=== PATIENT | female | born 1950 | race Caucasian/White ===

== ENCOUNTER → 2016-04-02 | Outpatient (CLI) | payer MEDICARE, OTHER ==
[2014-08-01 11:55] VITALS: BP 148/73
[~2016-04-02] MED LIST: AMLO5TAB4 PO; ASPI81TA2 PO; CARV3.12 PO; CARV6.252 PO; CHOL100013 PO; CIPR500T94 PO; FURO40TA4 PO; GLIM1TAB2 PO; HYDR-2666 PO; HYDR12.58 PO; HYDR1TAB12 PO; LEVO125T5 PO; LOSA100T6 PO; METF500T25 PO; MULT-18 PO; OMEG1CAP16 PO; SACU1TAB PO; VALS1TAB6 PO; [UNRECOGNIZED DRUG - OTHER]
[2016-04-02 09:57] LABS: BASO # 0.1 x10^3/uL (0.0-0.2); BASO % 2 % (0-3); EOS % 5 % (0-3); HEMATOCRIT 39.8 % (36.0-47.0); HEMOGLOBIN 13.3 g/dL (12.0-15.5); LYMPH # 1.9 x10^3/uL (1.0-4.8); LYMPH % 27 % (24-48); MEAN CORPUSCULAR HEMOGLOBIN 27 pg (25-35); MEAN CORPUSCULAR HGB CONC 33 g/dL (31-37); MEAN CORPUSCULAR VOLUME 82 fL (79-100); MONO % 8 % (0-9); NEUT % 59 % (31-73); PLATELET COUNT 223 x10^3/uL (140-400); RED BLOOD COUNT 4.87 x10^6/uL (3.50-5.40); RED CELL DISTRIBUTION WIDTH 17.1 % (11.5-14.5); WHITE BLOOD COUNT 7.1 x10^3/uL (4.0-11.0)
[2016-04-02 10:20] LABS: CALCIUM 9.8 mg/dL (8.5-10.1); CREATININE 1.4 mg/dL (0.6-1.0); GFR 37.6; POTASSIUM 4.7 mmol/L (3.5-5.1)
== END | disposition home or self-care (01) ==
LOC: LAB 09:25
PROVIDERS: ATTEND Internal Medicine Cardiovascular Disease
DX: I42.9 Cardiomyopathy, unspecified (principal); Z96.653 Presence of artificial knee joint, bilateral
CPT/HCPCS: 36415; 80048; 83735; 85027; 87641

== ENCOUNTER → 2016-04-27 | Outpatient (CLI) | payer MEDICARE, OTHER ==
[2014-08-01 11:55] VITALS: BP 148/73
[~2016-04-27] MED LIST changes: -VALS1TAB6 PO; +VALS1TAB8 PO
[2016-04-27 13:28] LABS: ALBUMIN 3.6 g/dL (3.4-5.0); CALCIUM 9.5 mg/dL (8.5-10.1); CREATININE 1.4 mg/dL (0.6-1.0); GFR 37.6; POTASSIUM 4.7 mmol/L (3.5-5.1)
[2016-04-27 13:30] LABS: BASO # 0.2 x10^3/uL (0.0-0.2); BASO % 3 % (0-3); EOS % 4 % (0-3); HEMATOCRIT 36.9 % (36.0-47.0); HEMOGLOBIN 12.1 g/dL (12.0-15.5); LYMPH # 2.2 x10^3/uL (1.0-4.8); LYMPH % 31 % (24-48); MEAN CORPUSCULAR HEMOGLOBIN 27 pg (25-35); MEAN CORPUSCULAR HGB CONC 33 g/dL (31-37); MEAN CORPUSCULAR VOLUME 82 fL (79-100); MONO % 8 % (0-9); NEUT % 54 % (31-73); PLATELET COUNT 235 x10^3/uL (140-400); RED BLOOD COUNT 4.52 x10^6/uL (3.50-5.40); RED CELL DISTRIBUTION WIDTH 16.1 % (11.5-14.5); WHITE BLOOD COUNT 7.3 x10^3/uL (4.0-11.0)
[2016-04-28 11:23] LABS: PTH INTACT 54 pg/mL (15-65)
== END | disposition home or self-care (01) ==
LOC: LAB 12:50
PROVIDERS: ATTEND Internal Medicine Nephrology
DX: N18.3 Chronic kidney disease, stage 3 (moderate) (principal)
CPT/HCPCS: 36415; 80069; 83970; 85027

== ENCOUNTER → 2016-05-07 | Outpatient (CLI) | payer MEDICARE, OTHER ==
[2014-08-01 11:55] VITALS: BP 148/73
[2016-05-07 12:36] LABS: BASO # 0.1 x10^3/uL (0.0-0.2); BASO % 2 % (0-3); EOS % 1 % (0-3); HEMATOCRIT 37.2 % (36.0-47.0); HEMOGLOBIN 12.2 g/dL (12.0-15.5); LYMPH # 1.3 x10^3/uL (1.0-4.8); LYMPH % 25 % (24-48); MEAN CORPUSCULAR HEMOGLOBIN 27 pg (25-35); MEAN CORPUSCULAR HGB CONC 33 g/dL (31-37); MEAN CORPUSCULAR VOLUME 81 fL (79-100); MONO % 15 % (0-9); NEUT % 58 % (31-73); PLATELET COUNT 191 x10^3/uL (140-400); RED BLOOD COUNT 4.58 x10^6/uL (3.50-5.40); RED CELL DISTRIBUTION WIDTH 16.6 % (11.5-14.5); WHITE BLOOD COUNT 5.3 x10^3/uL (4.0-11.0)
--- NOTE | 2016-05-07 13:07 | RAD ---
EXAM: Chest 2 views. HISTORY: Fever. COMPARISON: 08/28/2013. FINDINGS: Frontal and lateral views of the chest are obtained. A left-sided pacemaker/defibrillator has its leads in the right atrium, right ventricle and a left cardiac vein. There are no confluent infiltrates. There is no pneumothorax or pleural effusion. The heart is mildly enlarged. IMPRESSION: 1. Mild cardiomegaly.
== END | disposition home or self-care (01) ==
LOC: RAD 12:11
PROVIDERS: ATTEND Internal Medicine Cardiovascular Disease
DX: I51.7 Cardiomegaly (principal); Z95.0 Presence of cardiac pacemaker
CPT/HCPCS: 36415; 71020; 85027

== ENCOUNTER → 2016-05-28 | Outpatient (CLI) | payer MEDICARE, OTHER ==
[2014-08-01 11:55] VITALS: BP 148/73
[2016-05-28 11:32] LABS: CREATININE 1.6 mg/dL (0.6-1.0); GFR 32.2
== END | disposition home or self-care (01) ==
LOC: LAB 10:49
PROVIDERS: ATTEND Internal Medicine Nephrology
DX: I10 Essential (primary) hypertension (principal); E11.21 Type 2 diabetes mellitus with diabetic nephropathy; N18.3 Chronic kidney disease, stage 3 (moderate); Z68.37 Body mass index [BMI] 37.0-37.9, adult
CPT/HCPCS: 36415; 80048

== ENCOUNTER → 2016-06-11 | Outpatient (CLI) | payer MEDICARE, OTHER ==
[2014-08-01 11:55] VITALS: BP 148/73
--- NOTE | 2016-06-11 11:20 | KCIC ---
Ultrasound renal Indication: Hematuria. The right kidney measures 9.2 x 5.0 x 4.9 centimeters and the left kidney measures 9.0 x 5.4 x 4.3 centimeters. Cortical thickness and echogenicity is normal. There is a cyst along the lower pole of the left kidney measuring 4.0 x 3.4 centimeters. No calculi are detected. There is no hydronephrosis. The bladder is decompressed. Impression: Right renal cyst. No other significant abnormality is detected. Electronically signed by: Ankush Smith MD (Jun 11, 2016 11:19:09)
== END | disposition home or self-care (01) ==
LOC: KCIC US 07:50
PROVIDERS: ATTEND Urology
DX: R31.9 Hematuria, unspecified (principal)
CPT/HCPCS: 76770

== ENCOUNTER → 2016-06-11 | Outpatient (CLI) | payer MEDICARE, OTHER ==
[2014-08-01 11:55] VITALS: BP 148/73
--- NOTE | 2016-06-11 17:20 | KCIC ---
Bilateral digital screening mammograms with CAD: HISTORY Routine screening. COMPARISON Comparison is made to previous examinations dated 06/06/2015 and 05/16/2014. FINDINGS Breast density category A. The skin and nipples show no abnormalities. No abnormal lymph nodes are seen in the axilla. The breast parenchyma is predominately fatty. There continues to be a small circumscribed nodule at the 6 o'clock B position of the left breast which is unchanged. There are no new dominant masses, suspicious calcifications or architectural distortions. Benign appearing calcifications are present. IMPRESSION No evidence of malignancy. Recommend routine annual mammographic screening. This study was interpreted with the benefit of Computerized Aided Detection (CAD). Mammography is not 100% sensitive in detecting breast cancer. Therefore, a self breast exam and a clinical breast exam are very important. A negative mammogram does not negate a clinically suspicious finding and should not result in a delay in biopsying a clinically suspicious abnormality. BI-RADS category 2. Benign. This patient's information has been entered into a reminder system for the patient to be notified with the results of this examination and a target date for her next mammograms. Electronically signed by: Stephanie Heath MD (Jun 11, 2016 17:18:44)
== END | disposition home or self-care (01) ==
LOC: KCIC MAMMO 07:53
PROVIDERS: ATTEND Family Medicine
DX: Z12.31 Encounter for screening mammogram for malignant neoplasm of breast (principal)
CPT/HCPCS: G0202; 77067

== ENCOUNTER → 2016-06-16 | Outpatient (CLI) | payer MEDICARE, OTHER ==
[2014-08-01 11:55] VITALS: BP 148/73
[~2016-06-16] MED LIST changes: +IOHEXOL 180 MG/ML 10 ML VIAL. ONE; +methylPREDNISolone ACETATE 40 MG/ML VIAL. ONE; +methylPREDNISolone ACETATE 80 MG/ML VIAL. ONE
--- NOTE | 2016-06-17 08:14 | PAIN ---
DATE OF SERVICE: 06/16/2016 PROGRESS NOTE FOR PAIN CLINIC DIAGNOSIS: Lumbar radiculopathy with lumbar degenerative disk disease. HISTORY OF PRESENT ILLNESS: The patient is a 65-year-old female who returns for followup status post lumbar epidural steroid injection x 2, last seen 03/03/2016. The patient did very well with the last injection, reports about 90% improvement for several weeks following the injection. Since that time, she has had a pacemaker with internal defibrillator implanted on March of this year, has been doing some physical therapy because of some shoulder pain after the implant and also doing cardiac rehab, which has increased her activity level and caused her back to start aching again with some pain radiating to the left lower extremity as it was previously, mostly in the lateral and anterior aspect of the left thigh into the medial lower leg, but mostly in the back itself. The patient reports it is throbbing, hard to walk, difficult, has been awakening her from sleep a few times a night, is anywhere from a 4-6 on a scale of 10 currently, 4 with sitting. The patient reports no loss of motor function. No new bowel or bladder incontinence or other complaints, but still significant pain. PHYSICAL EXAMINATION: VITAL SIGNS: The patient's blood pressure is 144/85, pulse 73, respirations 18, temperature is 98.0 degrees Fahrenheit, height is 5 feet 5 inches, weight is 224 pounds. GENERAL: The patient is awake, alert, oriented, appropriate, has a very pleasant demeanor. HEENT: Shows normocephalic, atraumatic. Extraocular movements are intact and symmetrical. Oral cavity, mucous membranes are moist and pink. Dentition is intact. NECK: Shows anterior throat supple without palpable lymphadenopathy noted. Swallow reflex is symmetrical. CHEST: Shows normal on inspection. Breath sounds clear to auscultation bilaterally. HEART: Shows S1 and S2 clear. ABDOMEN: Soft, nontender, nondistended. No palpable organomegaly is noted. No rebound or guarding demonstrated. BACK: Shows spine grossly in the midline. Slight exaggeration of thoracic kyphosis with mild flattening of lumbar lordotic curvature and lumbar paraspinous muscle shows symmetrical on inspection with moderate tenderness with palpation mainly in the lower lumbar distribution, slightly more on the left than the right, but appears symmetrical and good rotational motion both laterally as well as extension and flexion without difficulty. EXTREMITIES: Lower extremities show deep tendon reflexes 2+ in the patellar and 1+ tendo calcaneus tendons, are equal. Motor exam is strong with 5/5 dorsiflexion, extension, quadriceps and hamstring flexion. PLAN: Options were discussed with the patient and the patient's old chart was reviewed as was her current medication regimen and updated. Current review of systems updated today as well. We will proceed with a lumbar epidural steroid injection today, the third in the series with fluoroscopic guidance. Risks were again discussed including, but not limited to bleeding, infection, possibility of epidural hematoma, subsequent neurological compromise, dural puncture, headaches, spinal cord and/or nerve damage, side effects of steroid medication and poor results regarding pain control. The patient understands and wishes to proceed. The patient will return to the clinic in approximately 2 weeks for followup, was counseled on return appointment, activity level and side effects to be aware of. DIAGNOSIS: Lumbar radiculopathy with lumbar degenerative disk disease. PROCEDURE: Lumbar epidural injection in a translaminar approach at the L4-L5 level using a C-arm fluoroscopic guidance under sterile prep and drape using local anesthetic. MEDICATIONS INJECTED: 120 mg Depo-Medrol plus 10 mL of preservative-free normal saline and 2 mL of Isovue for contrast. CONDITION AT DISCHARGE: Stable. The patient tolerated the procedure well, had no complications. LUIS PRINCE MD DR: RYAN/tae JOB#: [id number] / [id number]
== END | disposition home or self-care (01) ==
LOC: PNCL 09:31
PROVIDERS: ATTEND Anesthesiology
DX: M51.16 Intervertebral disc disorders with radiculopathy, lumbar region (principal); I10 Essential (primary) hypertension; M19.90 Unspecified osteoarthritis, unspecified site; E11.9 Type 2 diabetes mellitus without complications; E03.9 Hypothyroidism, unspecified; Z98.51 Tubal ligation status; Z87.442 Personal history of urinary calculi; Z96.653 Presence of artificial knee joint, bilateral
CPT/HCPCS: 62323; J1030; J1040

== ENCOUNTER → 2016-06-24 | Outpatient (CLI) | payer MEDICARE, OTHER ==
[2014-08-01 11:55] VITALS: BP 148/73
[~2016-06-24] MED LIST changes: -IOHEXOL 180 MG/ML 10 ML VIAL. ONE; -methylPREDNISolone ACETATE 40 MG/ML VIAL. ONE; -methylPREDNISolone ACETATE 80 MG/ML VIAL. ONE
[2016-06-24 13:30] LABS: CALCIUM 9.3 mg/dL (8.5-10.1); CREATININE 1.3 mg/dL (0.6-1.0); POTASSIUM 4.6 mmol/L (3.5-5.1)
== END | disposition home or self-care (01) ==
LOC: LAB 12:14
PROVIDERS: ATTEND Internal Medicine Nephrology
DX: I12.9 Hypertensive chronic kidney disease with stage 1 through stage 4 chronic kidney disease, or unspecified chronic kidney disease (principal); N18.3 Chronic kidney disease, stage 3 (moderate); E11.21 Type 2 diabetes mellitus with diabetic nephropathy; Z68.37 Body mass index [BMI] 37.0-37.9, adult
CPT/HCPCS: 36415; 80048

== ENCOUNTER → 2016-07-23 | Outpatient (CLI) | payer MEDICARE, OTHER ==
[2014-08-01 11:55] VITALS: BP 148/73
[2016-07-23 14:33] LABS: CALCIUM 9.6 mg/dL (8.5-10.1); CREATININE 1.5 mg/dL (0.6-1.0); GFR 34.7; POTASSIUM 4.7 mmol/L (3.5-5.1)
== END | disposition home or self-care (01) ==
LOC: LAB 13:46
PROVIDERS: ATTEND Internal Medicine Nephrology
DX: I12.9 Hypertensive chronic kidney disease with stage 1 through stage 4 chronic kidney disease, or unspecified chronic kidney disease (principal); N18.3 Chronic kidney disease, stage 3 (moderate); E11.21 Type 2 diabetes mellitus with diabetic nephropathy; Z68.37 Body mass index [BMI] 37.0-37.9, adult
CPT/HCPCS: 36415; 80048

== ENCOUNTER → 2016-08-19 | Outpatient (CLI) | payer MEDICARE, OTHER ==
[2014-08-01 11:55] VITALS: BP 148/73
[~2016-08-19] MED LIST changes: +IOHEXOL 180 MG/ML 10 ML VIAL. ONE; +methylPREDNISolone ACETATE 40 MG/ML VIAL. ONE; +methylPREDNISolone ACETATE 80 MG/ML VIAL. ONE
--- NOTE | 2016-08-20 00:17 | PAIN ---
DATE OF SERVICE: 08/19/2016 DIAGNOSES: Lumbar radiculopathy with lumbar degenerative disk disease. HISTORY OF PRESENT ILLNESS: The patient is a 65-year-old female who returns for followup status post lumbar epidural steroid injections, last seen 06/16/2016. The patient did very well with about 80% improvement after the last injection. The patient reports pain has returned now in the low back and more on the right side than the left. ____ she has had some pain in the left leg, is more noticeable in the right leg now without any specific injury or accident or any other new changes. The patient reports this as 10 on a scale of 10, it is worse and a 5 on a scale of 10 at its least, is currently a 5 today. The patient reports worse with standing and walking, but does not awaken her from sleep, and about every 5 hours or so, she has to reposition, take pain medicine, get out of the bed and change positions, otherwise doing well. No new motor or sensory deficits, reports the pain is shooting, sharp, can be severe with some radiating pain again more on the right side posterior lateral and at the lateral anterior thigh to the lower leg, but again present on the left, but more noticeable on the right. PHYSICAL EXAMINATION: VITAL SIGNS: The patient's blood pressure 136/81, pulse 84, respirations are 18, temperature is 98.1 degrees Fahrenheit. Height is 5 feet 5 inches, weighs 224 pounds. GENERAL: The patient is awake, alert, oriented, appropriate, very pleasant demeanor. HEENT: Head shows normocephalic, atraumatic. Extraocular movements are intact, symmetrical. Oral cavity, mucous membranes are moist and pink. Dentition is intact. NECK: Shows anterior throat supple. CHEST: Shows normal on inspection. Breath sounds are clear to auscultation bilaterally. HEART: Shows S1 and S2 clear. ABDOMEN: Soft, nontender, nondistended. No palpable organomegaly. No rebound or guarding demonstrated. BACK: Shows spine grossly in the midline. Normal appearing thoracic kyphosis and lumbar lordotic curvature. The patient's lumbar paraspinous muscle shows some moderate tenderness with palpation, but is symmetrical. No atrophy, hypertrophy, no radiation of pain, no trigger points. The patient shows good rotation and motion of the lumbar spine, both laterally as well as extension and flexion. EXTREMITIES: Lower extremities showed deep tendon reflexes at 2+ in the patellar, 1+ tendo-calcaneus tendons are equal. Motor exam is strong with 5/5 dorsiflexion, extension and symmetrical. Options were discussed with the patient and the patient's old chart was reviewed as her current medication regimen updated. Current review of systems updated today as well. We will proceed with a lumbar epidural steroid injection, the first in the series with fluoroscopic guidance. Risks were again discussed including, but not limited to bleeding, infection, possibility of epidural hematoma, subsequent neurologic compromise, dural puncture, headaches, spinal cord and/or nerve damage, side effects of steroid medication and poor results regarding pain control. The patient understands and wishes to proceed. The patient will return to clinic in approximately 2 weeks for followup. She was counseled as to return appointment, activity level and side effects to be aware of. DIAGNOSES: Lumbar radiculopathy with lumbar degenerative disk disease. PROCEDURE: Lumbar epidural steroid injection in translaminar approach at the L4-L5 level using C-arm fluoroscopic guidance. After sterile prep and drape using local anesthetic. MEDICATION INJECTED: 120 mg Depo-Medrol plus 10 mL of preservative-free normal saline and 2 mL of Isovue for contrast. CONDITION AT DISCHARGE: Stable. The patient tolerated procedure well. Had no complications. LUIS PRINCE MD DR: RYAN/tae JOB#: [id number] / [id number]
== END | disposition home or self-care (01) ==
LOC: PNCL 08:56
PROVIDERS: ATTEND Anesthesiology
DX: M51.16 Intervertebral disc disorders with radiculopathy, lumbar region (principal); I10 Essential (primary) hypertension; M19.90 Unspecified osteoarthritis, unspecified site; E11.9 Type 2 diabetes mellitus without complications; E03.9 Hypothyroidism, unspecified; Z98.51 Tubal ligation status; Z96.653 Presence of artificial knee joint, bilateral
CPT/HCPCS: 62323; J1030; J1040

== ENCOUNTER → 2016-09-14 | Outpatient (CLI) | payer MEDICARE, OTHER ==
[2014-08-01 11:55] VITALS: BP 148/73
[~2016-09-14] MED LIST changes: +ASPI-630 PO; -ASPI81TA2 PO; -HYDR-2666 PO; +HYDR-2758 PO; -IOHEXOL 180 MG/ML 10 ML VIAL. ONE; -OMEG1CAP16 PO; +OMEG1CAP27 PO
== END | disposition home or self-care (01) ==
LOC: PNCL 07:35
PROVIDERS: ATTEND Anesthesiology
DX: M51.16 Intervertebral disc disorders with radiculopathy, lumbar region (principal); I10 Essential (primary) hypertension; E11.9 Type 2 diabetes mellitus without complications; E03.9 Hypothyroidism, unspecified; Z98.51 Tubal ligation status; Z87.442 Personal history of urinary calculi; Z96.653 Presence of artificial knee joint, bilateral; Z86.39 Personal history of other endocrine, nutritional and metabolic disease; Z88.6 Allergy status to analgesic agent; Z88.0 Allergy status to penicillin; Z88.8 Allergy status to other drugs, medicaments and biological substances
CPT/HCPCS: 62323; J1030; J1040

== ENCOUNTER → 2016-10-21 | Outpatient (CLI) | payer MEDICARE, OTHER ==
[2014-08-01 11:55] VITALS: BP 148/73
[~2016-10-21] MED LIST changes: +IOHEXOL 180 MG/ML 10 ML VIAL. ONE
--- NOTE | 2016-10-21 22:27 | PAIN ---
DATE OF SERVICE: 10/21/2016 PROGRESS NOTE FOR PAIN CLINIC DIAGNOSES: Lumbar radiculopathy with lumbar degenerative disk disease. HISTORY OF PRESENT ILLNESS: This is a 66-year-old female who returns for followup status post lumbar epidural steroid injection x 2, last seen on 09/14/2016. The patient did very well with approximately 80% improvement initially. It is reduced over time to about a 30% improvement overall. The patient reports the pain in the low back, bilateral lower extremities, worse on the left than the right, worse with walking, standing, easy fatigability. The patient reports the last injection took a couple of days to kick in, but then was doing very well until the last 1-2 weeks, it has been returning to a significant extent. The patient reports pain as a 9 on a scale of 10 at its worst, currently a 4 on a scale of 10, average about a 6. The patient reports it as a sharp shooting, tingling, radiating and becoming more constant and with increasing fatigue in the low back and legs as well. The patient reports no new motor or sensory deficits. No new bowel or bladder incontinence or other complaints. Reports it awakens her from sleep occasionally, but not every night. PHYSICAL EXAMINATION: VITAL SIGNS: The patient's blood pressure 132/79, pulse 77, respirations 20, temperature 97.7 degrees Fahrenheit, height is 5 feet 5 inches, weight is 232 pounds. GENERAL: The patient is awake, alert, oriented, appropriate, very pleasant demeanor. HEENT: Shows normocephalic, atraumatic. Extraocular movements are intact, symmetrical. Oral cavity, mucous membranes are moist and pink. Dentition is intact. NECK: Shows anterior throat is supple without palpable lymphadenopathy noted. Swallow reflex is symmetrical. CHEST: Shows normal on inspection. Breath sounds are clear to auscultation bilaterally. HEART: Shows S1 and S2 clear. ABDOMEN: Soft, nontender, nondistended. No palpable organomegaly is noted. No rebound or guarding demonstrated. BACK: Shows spine grossly in the midline. Lumbar paraspinous muscle shows some moderate tenderness with palpation without radiation, symmetrical and on inspection of the paraspinous musculature quite diffuse tenderness bilaterally in the lumbar paraspinous muscles, mainly in the middle and lower distribution. The patient shows good rotational motion; however, both laterally greater than 10 degrees right and left as well as extension greater than 10 degrees, forward flexion 45 degrees lumbar spine without significant discomfort. The patient reports no tenderness with palpation over the spinous processes, sacrum or sacroiliac regions. Lower extremities show deep tendon reflexes 2+ in the patella and 1+ tendo calcaneus tendons are equal. Motor exam is strong with 5/5 dorsiflexion, extension, quadriceps and hamstring flexion equal bilaterally. Options were discussed with the patient and the patient's old chart was reviewed as her current medication regimen updated. Current review of systems updated today as well. We will proceed with a third in a series of lumbar epidural steroid injection with fluoroscopic guidance. Risks were again discussed including, but not limited to bleeding, infection, possibility of epidural hematoma, subsequent neurologic compromise, dural puncture, headaches, spinal cord and/or nerve damage, side effects of steroid medication and poor results regarding pain control. The patient understands and wishes to proceed. The patient will return to clinic in approximately 2 weeks for followup, was counseled on return appointment, activity level and side effects to be aware of. Also discussed rescanning a CT scan of lumbar spine, as it has been since 2013 since her last imaging and the pain is returning significantly with more fatigability and weakness in the legs and with a history of a shallow protrusion at the L4-L5 level. We will rescan to see if this is changed or worsened to the point where may need a neurosurgical evaluation. The patient would like to proceed with the scan. We will make these arrangements. DIAGNOSIS: Lumbar radiculopathy with lumbar degenerative disk disease. PROCEDURES: Lumbar epidural steroid injection in translaminar approach at the L4-L5 level using C-arm fluoroscopic guidance under sterile prep and drape using local anesthetic. MEDICATION INJECTED: A total of 120 mg Depo-Medrol plus 10 mL of preservative-free normal saline and 2 mL Isovue for contrast. CONDITION AT DISCHARGE: Stable. The patient tolerated the procedure well, had no complications. LUIS PRINCE MD DR: RYAN/tae JOB#: [id number] / [id number]
== END | disposition home or self-care (01) ==
LOC: PNCL 07:53
PROVIDERS: ATTEND Anesthesiology
DX: M51.16 Intervertebral disc disorders with radiculopathy, lumbar region (principal); I10 Essential (primary) hypertension; M19.90 Unspecified osteoarthritis, unspecified site; E11.9 Type 2 diabetes mellitus without complications; E03.9 Hypothyroidism, unspecified; Z98.51 Tubal ligation status; Z87.442 Personal history of urinary calculi; Z87.39 Personal history of other diseases of the musculoskeletal system and connective tissue; Z96.653 Presence of artificial knee joint, bilateral; Z86.39 Personal history of other endocrine, nutritional and metabolic disease; Z88.0 Allergy status to penicillin; Z88.6 Allergy status to analgesic agent; Z91.041 Radiographic dye allergy status
CPT/HCPCS: 62323; J1030; J1040

== ENCOUNTER → 2016-10-23 | Outpatient (CLI) | payer MEDICARE, OTHER ==
[2014-08-01 11:55] VITALS: BP 148/73
[~2016-10-23] MED LIST changes: -IOHEXOL 180 MG/ML 10 ML VIAL. ONE; -methylPREDNISolone ACETATE 40 MG/ML VIAL. ONE; -methylPREDNISolone ACETATE 80 MG/ML VIAL. ONE
--- NOTE | 2016-10-23 11:23 | KCIC ---
EXAM: Lumbar spine CT without contrast. HISTORY: Radiculopathy. TECHNIQUE: Computed tomographic images of the lumbar spine were obtained without contrast. Multiplanar reformatting was performed. *One or more of the following individualized dose reduction techniques were utilized for this examination: 1. Automated exposure control. 2. Adjustment of the mA and/or kV according to patient size. 3. Use of iterative reconstruction technique. COMPARISON: None. FINDINGS: There is lumbar dextroscoliosis centered at L3. There is grade 1 anterolisthesis of L4 on L5, measuring 6 mm. There is slight retrolisthesis of L2 on L3, measuring 2 mm. There is degenerative endplate remodeling and Schmorl's node formation at all levels. This is predominantly along the left aspect of L2-L3 and right aspect of L5-S1. This corresponds with levels of sclerotic concavity. There is a rudimentary disc at S1-S2. There are foci of gas measuring 14 mm within the right dorsal epidural space at the mid inferior aspect of L3 and 2 mm and 2 mm within the superior left lateral recess at L4-L5. This is likely due to a relatively recent spinal procedure. No lytic or sclerotic osseous lesion is seen. There is degenerative vacuum phenomenon and subchondral sclerosis involving the sacroiliac joints. 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 At L1-L2, there is a disc bulge and endplate remodeling. There is minimal left facet arthropathy. There is mild bilateral foraminal stenosis. At L2-L3, there is a disc bulge and endplate osteophytosis. There is mild right and moderate left facet arthropathy. There is hypertrophy of the ligamentum flavum. There is moderate right and moderate to severe left foraminal stenosis. There is mild central canal stenosis. At L3-L4, there is a disc bulge and endplate remodeling. There is moderate right greater than left facet arthropathy. There is moderate bilateral foraminal stenosis. There is moderate central canal stenosis. At L4-L5, there is a suspected left paracentral to extraforaminal disc protrusion with slight superior foraminal extrusion superimposed on a disc bulge and endplate remodeling. There is severe facet arthropathy. There is hypertrophy of the ligamentum flavum. There is mild to moderate right and severe left foraminal stenosis with effacement of the exiting left L4 nerve root. There is severe central canal stenosis. At L5-S1, there is a right lateral predominant disc bulge and endplate osteophytosis. There is severe right and mild left facet arthropathy. There is moderate to severe right and mild left foraminal stenosis. IMPRESSION: 1. Multilevel advanced degenerative change throughout the lumbar spine, described in detail above. This results in suspected mild bilateral foraminal stenosis at L1-L2, moderate right and moderate to severe left foraminal and mild central canal stenosis at L2-L3, moderate bilateral foraminal and central canal stenosis at L3-L4, mild to moderate right and severe left foraminal and severe central canal stenosis L4-L5 and moderate to severe right and mild left foraminal stenosis L5-S1. 2. Lumbar scoliosis and grade 1 anterolisthesis of L4 on L5. 3. Gas within the right dorsal epidural space at L3 and along the superior aspect of the left lateral recess at L4-L5. This is likely due to a relatively recent spinal procedure. Correlate with surgical/procedural history. Electronically signed by: Shanita Trammell MD (10/23/2016 11:19 AM) [id number]
== END | disposition home or self-care (01) ==
LOC: KCIC CT 10:20
PROVIDERS: ATTEND Anesthesiology
DX: M54.16 Radiculopathy, lumbar region (principal); M48.06 Spinal stenosis, lumbar region; M41.86 Other forms of scoliosis, lumbar region
CPT/HCPCS: 72131

== ENCOUNTER → 2016-10-29 | Outpatient (CLI) | payer MEDICARE ==
[2014-08-01 11:55] VITALS: BP 148/73
[2016-10-29 12:02] LABS: BASO % 0 % (0-3); EOS % 3 % (0-3); HEMATOCRIT 38.8 % (36.0-47.0); HEMOGLOBIN 12.6 g/dL (12.0-15.5); LYMPH # 1.6 x10^3/uL (1.0-4.8); LYMPH % 20 % (24-48); MEAN CORPUSCULAR HEMOGLOBIN 27 pg (25-35); MEAN CORPUSCULAR HGB CONC 32 g/dL (31-37); MEAN CORPUSCULAR VOLUME 85 fL (79-100); MONO % 6 % (0-9); NEUT % 71 % (31-73); PLATELET COUNT 227 x10^3/uL (140-400); RED BLOOD COUNT 4.58 x10^6/uL (3.50-5.40); RED CELL DISTRIBUTION WIDTH 15.4 % (11.5-14.5); WHITE BLOOD COUNT 8.1 x10^3/uL (4.0-11.0)
[2016-10-29 13:10] LABS: ALBUMIN 3.6 g/dL (3.4-5.0); CALCIUM 9.4 mg/dL (8.5-10.1); CREATININE 1.4 mg/dL (0.6-1.0); GFR 37.5; PHOSPHORUS 3.2 mg/dL (2.6-4.7); POTASSIUM 4.4 mmol/L (3.5-5.1)
[2016-10-30 08:20] LABS: PTH INTACT 36 pg/mL (15-65)
== END | disposition home or self-care (01) ==
LOC: LAB 11:30
PROVIDERS: ATTEND Internal Medicine Nephrology
DX: I12.9 Hypertensive chronic kidney disease with stage 1 through stage 4 chronic kidney disease, or unspecified chronic kidney disease (principal); N18.3 Chronic kidney disease, stage 3 (moderate); E11.22 Type 2 diabetes mellitus with diabetic chronic kidney disease; E11.21 Type 2 diabetes mellitus with diabetic nephropathy; Z68.37 Body mass index [BMI] 37.0-37.9, adult
CPT/HCPCS: 36415; 80069; 83970; 85025

== ENCOUNTER → 2017-01-25 | Outpatient (CLI) | payer MEDICARE, OTHER ==
[2014-08-01 11:55] VITALS: BP 148/73
[~2017-01-25] MED LIST changes: +ALPR0.25 PO; +CARV12.52 PO; +CHOL2000 PO; +DOCU-109 PO; +HYDR-2762 PO; +IBUP-1027 PO; +LEVO100T5 PO; +METH750T2 PO; +PROM25TA10 PO
[2017-01-25 15:46] LABS: BASO # 0.2 x10^3/uL (0.0-0.2); BASO % 2 % (0-3); EOS % 3 % (0-3); HEMATOCRIT 37.1 % (36.0-47.0); HEMOGLOBIN 12.1 g/dL (12.0-15.5); LYMPH # 2.1 x10^3/uL (1.0-4.8); LYMPH % 28 % (24-48); MEAN CORPUSCULAR HEMOGLOBIN 28 pg (25-35); MEAN CORPUSCULAR HGB CONC 33 g/dL (31-37); MEAN CORPUSCULAR VOLUME 85 fL (79-100); MONO % 7 % (0-9); NEUT % 60 % (31-73); PLATELET COUNT 229 x10^3/uL (140-400); RED BLOOD COUNT 4.38 x10^6/uL (3.50-5.40); RED CELL DISTRIBUTION WIDTH 14.7 % (11.5-14.5); WHITE BLOOD COUNT 7.4 x10^3/uL (4.0-11.0)
[2017-01-25 16:11] LABS: ALBUMIN 3.6 g/dL (3.4-5.0); CALCIUM 9.5 mg/dL (8.5-10.1); CREATININE 1.4 mg/dL (0.6-1.0); GFR 37.5; POTASSIUM 4.6 mmol/L (3.5-5.1); TOTAL BILIRUBIN 0.3 mg/dL (0.2-1.0); TOTAL PROTEIN 7.3 g/dL (6.4-8.2)
== END | disposition home or self-care (01) ==
LOC: SURGPAT 15:21
PROVIDERS: ATTEND Neurological Surgery
DX: Z01.818 Encounter for other preprocedural examination (principal); M51.16 Intervertebral disc disorders with radiculopathy, lumbar region; M48.061 Spinal stenosis, lumbar region without neurogenic claudication
CPT/HCPCS: 36415; 80053; 85025; 87641

== ENCOUNTER 2017-02-01 07:03 | Observation (INO) | payer MEDICARE, OTHER ==
--- NOTE | 2017-01-29 15:09 | PREOP HP ---
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 There is also an element of right lateral thigh discomfort. Most of the pain is in the left side. It is worse with standing and walking. It began 4 years ago. She rates her pain as a 4/10. Sitting usually helps with her pain. She uses ice and Motrin as well. Lortab is associated with nausea. She underwent lumbar epidural steroid injections, which helped her, although the relief was not lasting. PAST MEDICAL HISTORY: Arthritis, artificial joint, bilateral knees, heart attack, permanent pacemaker, heart trouble/disease, kidney problems, kidney stones, swelling of limbs, thyroid disease. PAST SURGICAL HISTORY: Appendectomy and ovarian cyst in 1966, tubal ligation in 1979, bilateral total knees in 2010, cardiac cath in 2014, cystoscopy in 2014, biventricular pacemaker and ICD in 2016, bilateral cataract removal in 2016. FAMILY HISTORY: Bleeding problems, diabetes, heart problems/disease, spine problems. SOCIAL HISTORY: Retired RN. . Exercises weekly. Denies substance abuse. Denies tobacco use. Drinks alcohol 1-2 times per year. Drinks coffee, tea and soda daily. ALLERGIES: TO PENICILLIN, CODEINE, IV CONTRAST DYE AND AVANDIA. CURRENT MEDICATIONS: Prednisone, alprazolam, aspirin, carvedilol, Entresto, levothyroxine, MegaRed omega-3, metformin, vitamin D, Vision Clear, Motrin. REVIEW OF SYSTEMS: A 12-point review of systems was obtained and is noncontributory except for that mentioned above. PHYSICAL EXAMINATION: NEUROSURGERY EXAMINATION: GENERAL APPEARANCE: Alert, pleasant, in no acute distress. HEAD: Normocephalic and atraumatic. SKIN: Warm and dry. MUSCULOSKELETAL: Lumbar paraspinal muscle bulk is normal, restricted range of motion of lumbar spine, [id number] tenderness of lower lumbar spine with palpation, normal range of motion of the lower extremities bilaterally. EXTREMITIES: No clubbing, cyanosis, or edema. NEUROLOGIC: Alert and oriented x 3, normal recent and remote memory, strength 5/5 in bilateral lower extremities, sensory was intact to light touch in the lower extremities bilaterally, reflexes were trace and symmetric in bilateral lower extremities IMAGING: Reviewed. I reviewed her lumbar myelogram and post-myelogram CT scan. There is an element of stenosis at L2-L3 and L3-L4, especially in extension. There is a large extradural defect at L4-L5 which is secondary to grade 1 anterolisthesis, which is unchanged in flexion and extension. On the CT portion, this appears to be due to degenerative changes. Facet arthropathy and probable broad-based left foraminal disk herniation. ASSESSMENT: 1. Spinal stenosis, lumbar region with neurogenic claudication. 2. Intervertebral disk disorders with radiculopathy, lumbar region. PLAN: I believe the majority of her problems are related to the stenosis and disk herniation on the left side at L4-L5. I recommended lumbar microsurgery at this level. She does not really want flexion and extension views and therefore, I will not instrument her, but I explained that over time, she may develop progressive problems of spondylolisthesis which could require instrumented lumbar fusion in the future. I discussed all this with her in detail. I outlined the risk of surgery as well as discussing the postoperative course with both the patient and her daughter. They understand. They would like for me to go ahead. We will make the arrangements. COURTNEY KENNY MD DR: RAJ/tae JOB#: [id number] / [id number]
[~2017-02-01] VITALS: Ht 165.1 cm; Wt 105.2 kg
[2017-02-01] VITALS (10 sets, daily range): BP systolic 119–139; BP diastolic 53–70
[~2017-02-01 07:03] MED LIST changes: +BACITRACIN 50,000 UNIT in IV NORMAL SALINE 1000ML BAG 1,000 ML IRR ONE; +BUPIVAC MPF-EPI 0.5%-1:200000 30 ML VIAL. ONE; -DOCU-109 PO; +GELATIN SPONGE SIZE 100. ONE; -HYDR-2762 PO; +IV RINGERS,LACTATED 1000ML 1,000 ML IV SCH; +KETOROLAC 60 MG/2 ML INJ FOR OR. ONE; +LIDOCAINE 1% PF 2 ML VIAL. ID PRN; -METH750T2 PO; +ONDANSETRON PF 4 MG/2 ML VIAL. IV PRN; +PROCHLORPERAZINE 10 MG/2 ML VIAL. IV PRN; +THROMBIN TOPICAL 20,000 UNIT SPRAY.SYRN KIT TP ONE; +VANCOMYCIN 1GM IVPB FOR OMNI 250 ML IV PRN; +fentaNYL PF VIAL 100 MCG/2 ML VIAL IV PRN
[2017-02-01] MEDS ORDERED: IV NORMAL SALINE 1000ML BAG 1,000 ML IV SCH (07:15)
[2017-02-01] MEDS ORDERED: BUPIVAC MPF-EPI 0.5%-1:200000 30 ML VIAL. ONE (07:50)
[2017-02-01] MEDS ORDERED: GELATIN SPONGE SIZE 100. ONE (07:50)
[2017-02-01] MEDS ORDERED: THROMBIN TOPICAL 20,000 UNIT SPRAY.SYRN KIT TP ONE (07:50)
[2017-02-01] MEDS ORDERED: KETOROLAC 60 MG/2 ML INJ FOR OR. ONE (07:50)
[2017-02-01] MEDS ORDERED: DESFLURANE > 120 MINUTES IH ONE (08:06)
[2017-02-01] MEDS ORDERED: fentaNYL PF VIAL 100 MCG/2 ML VIAL ONE (08:06)
[2017-02-01] MEDS ORDERED: REMIFENTANIL 2 MG VIAL. IV ONE (08:07)
[2017-02-01] MEDS ORDERED: NEOSTIGMINE METHYLSULFATE 5 MG/5 ML SYRINGE. ONE (08:07)
[2017-02-01] MEDS ORDERED: ROCURONIUM 50 MG/5 ML VIAL. ONE (08:07)
[2017-02-01] MEDS ORDERED: GLYCOPYRROLATE 1 MG/5 ML VIAL. ONE (08:07)
[2017-02-01] MEDS ORDERED: LIDOCAINE 2% PF Vial for OR 5 ML VIAL. ONE (08:08)
[2017-02-01] MEDS ORDERED: ONDANSETRON PF 4 MG/2 ML VIAL. ONE (08:08)
[2017-02-01] MEDS ORDERED: DEXAMETHASONE SOD PHOS 20 MG/5 ML VIAL. ONE (08:08)
[2017-02-01] MEDS ORDERED: PROPOFOL 20 ML IV ONE (08:08)
[2017-02-01] MEDS ORDERED: PROPOFOL 50 ML IV ONE ×2 (08:08→09:31)
[2017-02-01] MEDS ORDERED: PHENYLEPHRINE 10 MG/ML VIAL. ONE ×2 (08:09)
[2017-02-01] MEDS ORDERED: 0.9 % SODIUM CHLORIDE 50 ML VIAL. IJ ONE (08:11)
[2017-02-01] MEDS ORDERED: MIDAZOLAM HCL/PF 2 MG/2 ML VIAL. ONE ×2 (08:18→08:21)
[2017-02-01] MEDS ORDERED: ETOMIDATE 20 MG/10 ML VIAL. IV ONE (08:24)
[2017-02-01] MEDS ORDERED: ONDANSETRON PF 4 MG/2 ML VIAL. IV PRN (11:30)
[2017-02-01] MEDS ORDERED: diphenhydrAMINE HCL 25 MG CAPSULE PO PRN (11:30)
[2017-02-01] MEDS ORDERED: ACETAMINOPHEN 325 MG TABLET. PO PRN (11:30)
[2017-02-01] MEDS ORDERED: ZOLPIDEM 5 MG TABLET. PO PRN (11:30)
[2017-02-01] MEDS ORDERED: CALCIUM CARBONATE 500 MG TAB.CHEW PO PRN (11:30)
[2017-02-01] MEDS ORDERED: FUROSEMIDE 40 MG TABLET. PO PRN (11:30)
[2017-02-01] MEDS ORDERED: fentaNYL PF VIAL 100 MCG/2 ML VIAL IV PRN ×2 (11:30)
[2017-02-01] MEDS ORDERED: MAGNESIUM HYDROXIDE 2,400 MG/30 ML ORAL.SUSP. PO PRN (11:30)
[2017-02-01] MEDS ORDERED: IBUPROFEN 400 MG TABLET. PO PRN (11:30)
[2017-02-01] MEDS ORDERED: ALPRAZolam 0.25 MG TABLET PO PRN (11:30)
[2017-02-01] MEDS ORDERED: MAG HYDROX/ALUMINUM HYD/SIMETH 30 ML ORAL.SUSP PO PRN (11:30)
[2017-02-01] MEDS ORDERED: diphenhydrAMINE 50 MG/ML VIAL IV PRN (11:30)
[2017-02-01] MEDS ORDERED: DEXTROSE 50% 25 GM / 50ML DISP.SYRIN. IV PRN (11:30)
[2017-02-01] MEDS ORDERED: HYDROcodone/APAP 7.5/325MG 1 TAB TABLET PO PRN (11:30)
[2017-02-01] MEDS ORDERED: 0.9 % SODIUM CHLORIDE 10 ML DISP.SYRIN. IV PRN (11:30)
[2017-02-01] MEDS ORDERED: PROMETHAZINE 12.5 MG TABLET. PO PRN (11:45)
[2017-02-01] MEDS: fentaNYL PF VIAL 100 MCG/2 ML VIAL IV PRN ×2 (11:49→12:20)
[2017-02-01] MEDS ORDERED: NEOMY/BACITR/POLYMYXIN OINT PACKET. TP ONE (11:55)
[2017-02-01] MEDS: POTASSIUM CL 20MEQ-0.45% NACL 1,000 ML IV SCH ×2 (13:43→19:30)
[2017-02-01] MEDS: METHOCARBAMOL 750 MG TABLET PO SCH ×2 (13:51→21:21)
--- NOTE | 2017-02-01 18:16 | OP ---
DATE OF SURGERY: 02/01/2017 PREOPERATIVE DIAGNOSES: 1. Herniated lumbar disc, L4-L5, left. 2. Spondylolisthesis grade 1, L4-L5. 3. Lumbar spinal stenosis, L4-L5. POSTOPERATIVE DIAGNOSES: 1. Herniated lumbar disc, L4-L5, left. 2. Spondylolisthesis grade 1, L4-L5. 3. Lumbar spinal stenosis, L4-L5. OPERATION PERFORMED: Hemilaminotomy and microdiscectomy, L4-L5, left. The operation was done with EMG monitoring, fluoroscopy, microscopic dissection. SURGEON: Milan Kenny M.D. SENIOR MANUFACTURING ENGINEER: Migue Varner MD, assisted with surgery, assisted with the exposure, the microdiscectomy as well as closure. 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 On imaging studies, she did have a grade 1 spondylolisthesis and element of stenosis at L4-L5. There was also significant disc bulging on the left side and I recommended lumbar microsurgery. I performed flexion and extension films, there was no motion and so, I elected to focus on the left side and performed a decompression and discectomy and I tried to avoid of having to move down the path of an instrumented lumbar fusion. I discussed all this with her. She understood. She wished to go ahead. DESCRIPTION OF PROCEDURE: Following general endotracheal anesthesia, the patient positioned prone on the Michael frame. Her lumbar region was prepped and draped in the standard fashion. STEPHANIE hose and AV impulse boots were applied for DVT prophylaxis. A microscope was draped. Fluoroscopy was draped and brought into field. Monitoring was established. Vancomycin 1 gram was given. Using fluoroscopic guidance, a midline incision was made directly over the L4-L5 interspace. I dissected down the skin and subcutaneous tissue, reflected the paraspinal muscles and placed a [place] micro disc retractor, brought in the microscope and remainder of surgery done with a microscope using microscopic technique. I burred down a generous hemilaminotomy with a high speed air drill. Medially, the ligament was scarred to the dura. There was some difficulty in freeing this up, but I was able to free this up and peel ligament away performing an excellent decompression. I gently retracted the root medially. There was a large amount of bulging disc material and I incised the ligament and annulus and I teased back and milked back a number of disc fragments followed by entering into this region and performing a discectomy with pituitary rongeurs. As I worked, the entire region became very well decompressed. I was very pleased with the discectomy. I irrigated copiously with antibiotic solution. The roots were quite free throughout their course. I had excellent hemostasis. I did use small amounts of bone wax or the bipolar cautery where necessary. At this point, then I removed the retractor, irrigated copiously, obtained hemostasis in the muscle and I closed the wound in layers with absorbable sutures. The skin was closed with 4-0 subcuticular stitch. The operation went very well and the patient was taken to recovery room in excellent condition with normal strength in lower extremities. I was quite pleased with the surgery. MILAN KENNY MD DR: RAJ/tae JOB#: [id number] / [id number] [place]
[2017-02-01] MEDS: metFORMIN XR 500 MG TAB.ER.24H PO SCH (18:46)
[2017-02-01] MEDS: CARVEDILOL 12.5 MG TABLET. PO SCH (18:49)
[2017-02-01] MEDS: DOCUSATE SODIUM 100 MG CAPSULE. PO SCH (21:19)
[2017-02-01] MEDS: SACUBITRIL/VALSARTAN 24/26MG TABLET. PO SCH (21:21)
[2017-02-01] MEDS: HYDROcodone/APAP 7.5/325MG 1 TAB TABLET PO PRN (23:26)
[2017-02-02 03:00] VITALS: BP 119/55
[2017-02-02] MEDS: HYDROcodone/APAP 7.5/325MG 1 TAB TABLET PO PRN (06:21)
[2017-02-02 06:47] VITALS: BP 115/59
[2017-02-02] MEDS ORDERED: LEVOTHYROXINE 100 MCG TABLET PO SCH (07:30)
[2017-02-02] MEDS: metFORMIN XR 500 MG TAB.ER.24H PO SCH (08:08)
[2017-02-02] MEDS: DOCUSATE SODIUM 100 MG CAPSULE. PO SCH (08:09)
[2017-02-02] MEDS: METHOCARBAMOL 750 MG TABLET PO SCH (08:10)
[2017-02-02] MEDS: CARVEDILOL 12.5 MG TABLET. PO SCH (08:13)
[2017-02-02] MEDS ORDERED: OMEGA-3 FATTY ACIDS/FISH OIL 1,000 MG CAPSULE. PO SCH (09:00)
[2017-02-02] MEDS ORDERED: CHOLECALCIFEROL (VITAMIN D3) 1,000 UNIT TABLET PO SCH (09:00)
[2017-02-02] MEDS ORDERED: ASPIRIN CHEWABLE 81 MG TABLET. PO SCH (09:00)
[2017-02-02] MEDS ORDERED: GLIMEPIRIDE 2 MG TABLET. PO SCH (09:00)
[2017-02-02] MEDS ORDERED: MULTIVITAMIN with MINERAL TABLET. PO SCH (09:00)
[2017-02-02] MEDS: SACUBITRIL/VALSARTAN 24/26MG TABLET. PO SCH (09:00)
--- NOTE | 2017-02-02 10:14 | DISCH ---
DISCHARGE INSTRUCTIONS Condition on Discharge Condition on Discharge: Stable Activity After Discharge Activity Instructions for Disc: Activity as tolerated, Avoid exertion Other activity instructions: No driving for a week Bathing Instructions: Shower-keep dressing dry Lifting Instructions after Dis: No heavy lifting, No pulling or pushing, Do not lift >10 pounds Diet after Discharge Additional Diet Restrictions: resume home diet Wound Incision Care Wound/Incision Care: Ice to area for comfort Other wound/incision instructi: may remove dressing in 48 hrs if dry then may shower- no soaking Contacting the after DC Call your doctor for: Concerns you may have Follow-Up Follow up with: Dr. Kenny's nurse in 2 weeks [phone] COURTNEY KENNY MD Feb 02, 2017 10:14
[2017-02-02] MEDS ORDERED: DOCU-109 PO (10:18)
[2017-02-02] MEDS ORDERED: HYDR-2762 PO (10:18)
[2017-02-02] MEDS ORDERED: METH750T2 PO (10:18)
[2017-02-02 11:03] VITALS: BP 117/59
--- NOTE | 2017-02-02 14:21 | PATHOLOGY ---
PATHOLOGY REPORT * * * * * * * * FINAL DIAGNOSIS: Segments of fibrocartilaginous, adipose, and skeletal muscle tissue and bone, lumbar decompression: - Degenerative changes of fibrocartilaginous tissue. COMMENT: There is no evidence of an acute inflammatory process or malignancy. (JPM:rlm; 02/02/2017) REPORT ELECTRONICALLY SIGNED BY: Jim Fishman M.D. DATE/TIME: 02/02/2017 14:20 * * * * * * * * GROSS PATHOLOGY: Received in formalin labeled "Shelly Soliman, lumbar decompression," are multiple segments of yellow and connors-white rubbery and gritty tissue measuring 5.4 x 3.9 x 1.8 cm in aggregate dimensions, containing small fragments of possible bone. The tissue is submitted entirely in cassette A1, following a period of decalcification. (TSD; 02/01/2017) INITIAL CPT CODE(S): A; 79676, 13426 Professional services performed [place] [address] Technical services performed by [facility] at [address] [place] [address]. SPECIMEN(S) RECEIVED: A.Lumbar decompression CLINICAL HISTORY: Lumbar herniated disc PATIENT: SHELLY SOLIMAN /AGE: 609/10/1950 (Age: 66) PATIENT #: [id number] ALT CASE #: SPECIMEN COLLECTION DATE: 02/01/2017 SPECIMEN RECEIVED DATE: 02/01/2017 [facility] - [address] [place] [address] - PHONE: [phone] * * * END OF REPORT * * *
== END 2017-02-02 12:45 | disposition home or self-care (01) ==
LOC: SURG 07:03 → 4 SOUTHEST 11:50
PROVIDERS: ADMIT Neurological Surgery; ATTEND Neurological Surgery
DX: M48.062 Spinal stenosis, lumbar region with neurogenic claudication (principal); M43.10 Spondylolisthesis, site unspecified; M51.16 Intervertebral disc disorders with radiculopathy, lumbar region; I25.2 Old myocardial infarction; Z83.3 Family history of diabetes mellitus; Z87.442 Personal history of urinary calculi; Z95.0 Presence of cardiac pacemaker; Z98.51 Tubal ligation status
CPT/HCPCS: 63030; 76000; 82962; 88304; 88311; 96374; 96375; 97162; 97530; G0378; G0379; G8978; G8979; G8980; J0780; J1100; J1885; J2250; J2405; J2704; J2710; J3010; J3370; J3490; J7030; Q0169; J2001

== ENCOUNTER → 2017-04-21 | Outpatient (CLI) | payer MEDICARE, OTHER ==
[2017-04-21 12:20] LABS: ADD MAN DIFF? NO
[2017-04-21 12:26] LABS: BASO % 0 % (0-3); EOS # 0.3 x10^3/uL (0.0-0.7); EOS % 4 % (0-3); HEMATOCRIT 37.2 % (36.0-47.0); HEMOGLOBIN 12.5 g/dL (12.0-15.5); LYMPH # 2.1 x10^3/uL (1.0-4.8); LYMPH % 27 % (24-48); MEAN CORPUSCULAR HEMOGLOBIN 28 pg (25-35); MEAN CORPUSCULAR HGB CONC 34 g/dL (31-37); MEAN CORPUSCULAR VOLUME 83 fL (79-100); MONO # 0.7 x10^3/uL (0.0-1.1); MONO % 9 % (0-9); NEUT # 4.5 x10^3uL (1.8-7.7); NEUT % 59 % (31-73); PLATELET COUNT 235 x10^3/uL (140-400); RED BLOOD COUNT 4.51 x10^6/uL (3.50-5.40); RED CELL DISTRIBUTION WIDTH 15.4 % (11.5-14.5); WHITE BLOOD COUNT 7.7 x10^3/uL (4.0-11.0)
[2017-04-21 12:51] LABS: ALBUMIN 3.8 g/dL (3.4-5.0); ANION GAP 11 (6-14); BLOOD UREA NITROGEN 26 mg/dL (7-20); CALCIUM 10.2 mg/dL (8.5-10.1); CARBON DIOXIDE 28 mmol/L (21-32); CHLORIDE 103 mmol/L (98-107); CREATININE 1.5 mg/dL (0.6-1.0); GFR 34.6; GLUCOSE 130 mg/dL (70-99); PHOSPHORUS 3.2 mg/dL (2.6-4.7); POTASSIUM 4.6 mmol/L (3.5-5.1); SODIUM 142 mmol/L (136-145)
[2017-04-22 13:23] LABS: CREATININE PTH 1.48 mg/dL (0.57-1.00); PHOSPHORUS PTH 3.2 mg/dL (2.5-4.5); PTH INTACT 51 pg/mL (15-65); eGFR AFRICAN-AMER 42 (>59); eGFR NON AFRICAN-AMER 36 (>59)
== END | disposition home or self-care (01) ==
LOC: LAB 12:03
DX: I12.9 Hypertensive chronic kidney disease with stage 1 through stage 4 chronic kidney disease, or unspecified chronic kidney disease (principal); E11.22 Type 2 diabetes mellitus with diabetic chronic kidney disease; N18.3 Chronic kidney disease, stage 3 (moderate); I25.5 Ischemic cardiomyopathy; Z68.38 Body mass index [BMI] 38.0-38.9, adult
CPT/HCPCS: 36415; 80069; 83970; 85025

== ENCOUNTER → 2017-06-14 | Outpatient (CLI) | payer MEDICARE, OTHER | END | disposition home or self-care (01) | LOC: KCIC MAMMO 09:38 | DX: Z12.31 Encounter for screening mammogram for malignant neoplasm of breast (principal) | CPT/HCPCS: 77063; 77067 ==

== ENCOUNTER → 2018-05-10 | Outpatient (CLI) | payer MEDICARE, OTHER ==
[~2018-05-10] MED LIST changes: -BACITRACIN 50,000 UNIT in IV NORMAL SALINE 1000ML BAG 1,000 ML IRR ONE; -BUPIVAC MPF-EPI 0.5%-1:200000 30 ML VIAL. ONE; +CARV12.511 PO; -CARV12.52 PO; +CARV6.2511 PO; -CARV6.252 PO; +DOCU-109 PO; -GELATIN SPONGE SIZE 100. ONE; -HYDR-2758 PO; +HYDR-2761 PO; +HYDR-2765 PO; -HYDR1TAB12 PO; +HYDR1TAB13 PO; -IV RINGERS,LACTATED 1000ML 1,000 ML IV SCH; -KETOROLAC 60 MG/2 ML INJ FOR OR. ONE; -LIDOCAINE 1% PF 2 ML VIAL. ID PRN; +LOSA100T14 PO; -LOSA100T6 PO; +METH750T2 PO; -ONDANSETRON PF 4 MG/2 ML VIAL. IV PRN; -PROCHLORPERAZINE 10 MG/2 ML VIAL. IV PRN; -THROMBIN TOPICAL 20,000 UNIT SPRAY.SYRN KIT TP ONE; -VANCOMYCIN 1GM IVPB FOR OMNI 250 ML IV PRN; -fentaNYL PF VIAL 100 MCG/2 ML VIAL IV PRN
[2018-05-10 12:36] LABS: BASO % 0 % (0-3); EOS # 0.4 x10^3/uL (0.0-0.7); EOS % 5 % (0-3); HEMATOCRIT 35.3 % (36.0-47.0); HEMOGLOBIN 11.4 g/dL (12.0-15.5); LYMPH # 2.1 x10^3/uL (1.0-4.8); LYMPH % 30 % (24-48); MEAN CORPUSCULAR HEMOGLOBIN 27 pg (25-35); MEAN CORPUSCULAR HGB CONC 32 g/dL (31-37); MEAN CORPUSCULAR VOLUME 83 fL (79-100); MONO # 0.5 x10^3/uL (0.0-1.1); MONO % 8 % (0-9); NEUT # 3.9 x10^3uL (1.8-7.7); NEUT % 57 % (31-73); PLATELET COUNT 230 x10^3/uL (140-400); RED BLOOD COUNT 4.23 x10^6/uL (3.50-5.40); RED CELL DISTRIBUTION WIDTH 16.2 % (11.5-14.5); WHITE BLOOD COUNT 6.9 x10^3/uL (4.0-11.0)
[2018-05-10 12:54] LABS: CALCIUM 9.7 mg/dL (8.5-10.1); CREATININE 1.7 mg/dL (0.6-1.0); GFR 29.9; POTASSIUM 4.7 mmol/L (3.5-5.1)
== END | disposition home or self-care (01) ==
LOC: LAB 12:09
PROVIDERS: ATTEND Internal Medicine Cardiovascular Disease
DX: I10 Essential (primary) hypertension (principal); I42.8 Other cardiomyopathies
CPT/HCPCS: 36415; 80048; 84443; 85025

== ENCOUNTER → 2018-05-13 | Outpatient (CLI) | payer MEDICARE, OTHER ==
[2018-05-13 13:14] LABS: BASO # 0.1 x10^3/uL (0.0-0.2); BASO % 2 % (0-3); EOS # 0.3 x10^3/uL (0.0-0.7); EOS % 4 % (0-3); HEMATOCRIT 35.4 % (36.0-47.0); HEMOGLOBIN 11.5 g/dL (12.0-15.5); LYMPH % 30 % (24-48); MEAN CORPUSCULAR HEMOGLOBIN 27 pg (25-35); MEAN CORPUSCULAR HGB CONC 33 g/dL (31-37); MEAN CORPUSCULAR VOLUME 83 fL (79-100); MONO # 0.4 x10^3/uL (0.0-1.1); MONO % 6 % (0-9); NEUT # 3.9 x10^3uL (1.8-7.7); NEUT % 58 % (31-73); PLATELET COUNT 233 x10^3/uL (140-400); RED BLOOD COUNT 4.25 x10^6/uL (3.50-5.40); RED CELL DISTRIBUTION WIDTH 15.7 % (11.5-14.5); WHITE BLOOD COUNT 6.8 x10^3/uL (4.0-11.0)
[2018-05-13 14:55] LABS: ALBUMIN 3.6 g/dL (3.4-5.0); CALCIUM 9.3 mg/dL (8.5-10.1); CREATININE 1.8 mg/dL (0.6-1.0); PHOSPHORUS 3.4 mg/dL (2.6-4.7); POTASSIUM 4.4 mmol/L (3.5-5.1)
[2018-05-14 11:13] LABS: CALCIUM PTH 9.5 mg/dL (8.7-10.3); CREATININE PTH 1.72 mg/dL (0.57-1.00); PHOSPHORUS PTH 3.2 mg/dL (2.5-4.5); PTH INTACT 49 pg/mL (15-65)
== END | disposition home or self-care (01) ==
LOC: LAB 12:04
PROVIDERS: ATTEND Internal Medicine Nephrology
DX: I12.9 Hypertensive chronic kidney disease with stage 1 through stage 4 chronic kidney disease, or unspecified chronic kidney disease (principal); E11.22 Type 2 diabetes mellitus with diabetic chronic kidney disease; N18.3 Chronic kidney disease, stage 3 (moderate); E11.21 Type 2 diabetes mellitus with diabetic nephropathy; I42.9 Cardiomyopathy, unspecified; Z68.39 Body mass index [BMI] 39.0-39.9, adult
CPT/HCPCS: 36415; 80069; 83970; 85025

== ENCOUNTER → 2018-06-15 | Outpatient (CLI) | payer MEDICARE ==
--- NOTE | 2018-06-15 13:17 | KCIC ---
Bilateral digital screening mammograms with 3-D tomosynthesis: Reason for examination: Routine screening. Comparison is made to previous studies dated 06/14/2017 and 06/11/2016. Bilateral mammograms in CC and oblique projections were obtained with 2-D imaging and 3-D tomosynthesis imaging on a Visto Inspiration unit and reviewed on the workstation. Interpretation was made with the benefit of CAD. The skin and nipples show no abnormalities. No abnormal axillary lymph nodes are seen. The breast parenchyma is predominantly fatty. (Breast density: Category A.) There are continues to be a small circumscribed nodule in the 6:00 position posteriorly in the left breast which is stable. There are no new no dominant masses, suspicious calcifications or architectural distortion. Impression: No evidence of malignancy. Recommend routine screening. BI-RAD Category 2: Benign. "Our facility is accredited by the [employer] Mammography Program." This patient's information has been entered into a reminder system for the patient to be notified with the results of her examination and a target date for the next mammogram. Electronically signed by: Jeri Heath MD (06/15/2018 1:14 PM) [id number]
== END | disposition home or self-care (01) ==
LOC: KCIC MAMMO 08:46
PROVIDERS: ATTEND Family Medicine
DX: Z12.31 Encounter for screening mammogram for malignant neoplasm of breast (principal)
CPT/HCPCS: 77063; 77067

== ENCOUNTER → 2018-08-18 | Outpatient (CLI) | payer MEDICARE ==
[2018-08-18 13:18] LABS: ALBUMIN 3.8 g/dL (3.4-5.0); CALCIUM 10.2 mg/dL (8.5-10.1); CREATININE 1.9 mg/dL (0.6-1.0); GFR 26.3; PHOSPHORUS 3.4 mg/dL (2.6-4.7); POTASSIUM 4.2 mmol/L (3.5-5.1)
== END | disposition home or self-care (01) ==
LOC: LAB 12:44
PROVIDERS: ATTEND Internal Medicine Nephrology
DX: E11.21 Type 2 diabetes mellitus with diabetic nephropathy (principal); E11.22 Type 2 diabetes mellitus with diabetic chronic kidney disease; I12.9 Hypertensive chronic kidney disease with stage 1 through stage 4 chronic kidney disease, or unspecified chronic kidney disease; N18.4 Chronic kidney disease, stage 4 (severe); I42.9 Cardiomyopathy, unspecified; Z68.41 Body mass index [BMI] 40.0-44.9, adult
CPT/HCPCS: 36415; 80069

== ENCOUNTER → 2018-11-29 | Outpatient (CLI) | payer MEDICARE ==
--- NOTE | 2018-11-29 14:56 | RAD ---
EXAM: CT lumbar spine without IV contrast CLINICAL HISTORY:Lumbar stenosis, low back pain COMPARISON: None available. TECHNIQUE: Helical CT was performed through the lumbar spine. Axial, coronal and sagittal reformatted images were generated. PQRS compliance statement - One or more of the following individualized dose reduction techniques were utilized for this study: 1. Automated exposure control 2. Adjustment of the mA and/or kV according to patient size 3. Use of iterative reconstruction technique FINDINGS: Vertebral body heights are preserved. No evidence for acute fracture. There our 5 nonrib-bearing lumbar-type vertebral bodies. Grade 1 anterolisthesis of L4 on L5 measures 6 mm. Advanced facet degenerative changes are seen at L4-5 and L5-S1. Moderate L5-S1 disc height loss. Mild disc height loss of the other levels. Anterior endplate osteophytes are seen at multiple levels. Lumbar spine: L1-L2: Mild generalized bulge results in mild central canal stenosis and mild bilateral neural foraminal narrowing. L2-L3: Posterior disc osteophyte complex with diffuse disc bulge, facet degenerative changes and ligamentum flavum hypertrophy results in mild to moderate central canal stenosis and moderate to severe left and moderate right neural foraminal narrowing. L3-L4: Generalized disc bulge with ligamentum flavum hypertrophy and facet degenerative changes with mildly prominent epidural fat results in moderate to severe central canal stenosis with thecal sac measuring approximately 6 mm in AP dimension and moderate to severe bilateral neural foraminal narrowing. L4-L5: Grade 1 anterolisthesis of L4 on L5 bilaterally with bilateral facet degenerative changes, ligamentum flavum hypertrophy and facet degenerative changes results in moderate to severe central canal stenosis with thecal sac measuring approximately 6 mm in AP dimension with moderate bilateral neural foraminal narrowing. L5-S1: No significant central canal stenosis or neural foraminal narrowing IMPRESSION: 1. Multilevel spondylosis as above, most prominent at L3-4 and L4-5. 2. Negative acute fracture. 3. Grade 1 anterolisthesis of L4 on L5. Electronically signed by: Chuck Reed MD (11/29/2018 2:53 PM) [facility]
== END | disposition home or self-care (01) ==
LOC: CT 08:59
PROVIDERS: ATTEND Family Medicine
DX: M48.061 Spinal stenosis, lumbar region without neurogenic claudication (principal); M47.816 Spondylosis without myelopathy or radiculopathy, lumbar region; M43.16 Spondylolisthesis, lumbar region; M25.78 Osteophyte, vertebrae; M89.38 Hypertrophy of bone, other site
CPT/HCPCS: 72131

== ENCOUNTER → 2018-12-07 | Outpatient (CLI) | payer MEDICARE ==
[~2018-12-07] MED LIST changes: +CARV25TA2 PO; +IOHEXOL 180 MG/ML 10 ML VIAL. ONE; +methylPREDNISolone ACETATE 40 MG/ML VIAL. ONE; +methylPREDNISolone ACETATE 80 MG/ML VIAL. ONE
--- NOTE | 2018-12-07 08:58 | PN ---
DATE: 12/07/2018 PROGRESS NOTE FOR PAIN CLINIC DIAGNOSES: Lumbar radiculopathy with lumbar degenerative disk disease and lumbar post-laminectomy syndrome. HISTORY OF PRESENT ILLNESS: The patient is a 68-year-old female who returns for followup status post previous lumbar epidural steroid injection, last seen in 10/2016. The patient has since had lumbar decompression and laminectomy at the L4-L5 level about a year ago. The patient reports she did very well initially, but over the past few weeks, she has been increasing her activity. She was traveling to see her mother, sleeping on an uncomfortable bed with lot of traveling and lot of position changes and a lot of time on her feet, which has increased some pain in her low back that is radiating to bilateral lower extremities, mostly in the posterior gluteus, posterolateral thigh, lateral anterior thighs, worse on the right than the left, but last week was worst on the left. The patient reports it goes into the left lower leg as well in the anterior aspect of the right leg. The patient reports it is sharp, tight, radiating, becoming more constant with severe about a week ago, but getting better on its own slightly. The patient reports her pain in the last week was at 10 on a scale of 10 at its worst, 8 on average, 4 at its least and is an 8 today. The patient reports no new motor or sensory deficits, no new bowel or bladder incontinence or other complaints. It has been awakening her from sleep about every 5 hours. PHYSICAL EXAMINATION: VITAL SIGNS: The patient's blood pressure 129/91, pulse 85, respirations 16, temperature 98.7 degrees Fahrenheit, height is 5 feet 5 inches, weight is 240 pounds. GENERAL: The patient is awake, alert, oriented, appropriate, very pleasant demeanor. HEENT: Head shows normocephalic, atraumatic. Extraocular movements are intact and symmetrical. Oral cavity: Mucous membranes moist and pink. Dentition is intact. NECK: Shows anterior throat supple without palpable lymphadenopathy noted. Swallow reflex symmetrical. CHEST: Shows normal on inspection. Breath sounds clear to auscultation bilaterally. HEART: Shows S1, S2 clear. No murmurs auscultated. ABDOMEN: Obese, soft, nontender, nondistended. No palpable organomegaly is noted. No rebound or guarding demonstrated. BACK: Shows spine grossly in the midline. Normal-appearing thoracic kyphosis and slight flattening of lumbar lordotic curvature. Lumbar paraspinous muscle shows symmetrical on inspection, on palpation shows some moderate tenderness diffusely, but only diffusely without specific radiation. The patient has good rotational motion of lumbar spine both laterally as well as extension and flexion without significant difficulty or pain reported. EXTREMITIES: The patient's lower extremities show deep tendon reflexes at 2+ and patellar 1+, tendo-calcaneus tendons are equal. Motor exam is strong with 5/5 dorsiflexion, extension, quadriceps and hamstring flexion symmetrical. Peripheral pulses are 1+ posterior tibia. No peripheral edema is noted bilaterally. Options were discussed with the patient. The patient's old chart was reviewed as her current medication regimen updated. Current review of systems updated today as well and we will proceed with a lumbar epidural steroid injection today with fluoroscopic guidance. Risks were discussed including but not limited to bleeding, infection, possibility of epidural hematoma, subsequent neurologic compromise, dural punctures, headaches, spinal cord and/or nerve damage, side effects of steroid medication and poor results regarding pain control. The patient understands and wished to proceed. The patient will return to clinic in approximately 2 weeks for followup. She was counseled as to return appointment, activity level and side effects to be aware of. DIAGNOSES: Lumbar radiculopathy with lumbar degenerative disk disease, post-lumbar laminectomy syndrome. PROCEDURE: Lumbar epidural steroid injection, translaminar approach at the L4-L5 level using C-arm fluoroscopic guidance under sterile prep and drape using local anesthetic. MEDICATION INJECTED: A total of 120 mg Depo-Medrol plus 10 mL of preservative-free normal saline and 2 mL of contrast. CONDITION AT DISCHARGE: Stable. The patient tolerated procedure well, had no complications. LUIS PRINCE MD DR: RYAN/tae JOB#: [id number] / [id number]
== END ==
LOC: PNCL 07:33
PROVIDERS: ATTEND Anesthesiology
DX: M51.16 Intervertebral disc disorders with radiculopathy, lumbar region (principal); M96.1 Postlaminectomy syndrome, not elsewhere classified
CPT/HCPCS: 62323; J1030; J1040; Q9965

== ENCOUNTER → 2019-01-31 | Outpatient (CLI) | payer MEDICARE ==
[~2019-01-31] MED LIST changes: -GLIM1TAB2 PO; +GLIM1TAB3 PO; -IOHEXOL 180 MG/ML 10 ML VIAL. ONE; -methylPREDNISolone ACETATE 40 MG/ML VIAL. ONE; -methylPREDNISolone ACETATE 80 MG/ML VIAL. ONE
--- NOTE | 2019-02-01 09:50 | SLEEP ---
DATE OF STUDY: 02/01/2019 SLEEP STUDY ATTENDING PHYSICIAN: Gaurav Sanchez MD The patient is 68 years old, who weighs 239 pounds with a BMI of 40. The patient's Hazle[place] score was 7. The patient underwent split night study performed at [facility]. During the night study, the patient spent 523 minutes in bed and slept for 397 minutes with a sleep efficiency of 72%. Sleep latency was 28 minutes with a REM latency of 195 minutes. Sleep architecture showed increased stage 1 sleep, normal stage 2 sleep, increased slow wave and reduced REM sleep. During the initial diagnostic portion of the study, the patient slept for 205 minutes. During that time, there were 5 obstructive apneas, 7 mixed apneas, no central apneas and 114 hypopneas. The patient's apnea hypopnea index was 37 per hour with an absent supine sleep. REM index was 77 per hour. EKG monitoring revealed an average heart rate of 87 beats per minute. No sustained arrhythmias observed. No PLMS seen. Nocturnal oximetry study revealed an average oxygen saturation of 92%; the lowest was 78%. A 13% of the time, oxygen saturation remained between 80% and 89%. The patient met the criteria for CPAP initiation. It was started at 5 cm water and titrated up to 16 cm water. At the final pressure, the patient slept for 32 minutes. The patient had REM sleep, but no supine sleep. The patient's AHI was reduced to 2 per hour and oxygen saturation remained above 90%. The patient used [id number]-face mask. IMPRESSION: 1. Severe sleep apnea-hypopnea syndrome at an apnea-hypopnea index of 37 per hour with a rapid eye movement apnea-hypopnea index of 77 per hour. 2. Nocturnal hypoxia secondary to obstructive sleep apnea, but resolved with CPAP. 3. No clinically significant periodic limb movements. RECOMMENDATIONS: 1. CPAP at 16 cm water completely eliminated the patient's sleep apnea and should be used on a nightly basis. 2. Follow up in 4-6 weeks to assess compliance with CPAP and to document clinical improvement. 3. Weight loss is advised. 4. Avoid [employer] depressants. 5. Cautioned regarding driving until symptoms of sleep apnea resolve with the use of CPAP. JAGDISH WALKER MD DR: MARQUES/tae JOB#: [id number] / [id number] GAURAV Del Real MD
== END | disposition home or self-care (01) ==
LOC: RT 19:20
PROVIDERS: ATTEND Internal Medicine Critical Care Medicine
DX: G47.33 Obstructive sleep apnea (adult) (pediatric) (principal); G47.34 Idiopathic sleep related nonobstructive alveolar hypoventilation
CPT/HCPCS: 95810

== ENCOUNTER → 2019-02-17 | Outpatient (CLI) | payer MEDICARE ==
[2019-02-17 14:24] LABS: BASO # 0.2 x10^3/uL (0.0-0.2); BASO % 2 % (0-3); EOS # 0.2 x10^3/uL (0.0-0.7); EOS % 3 % (0-3); HEMATOCRIT 37.7 % (36.0-47.0); HEMOGLOBIN 12.6 g/dL (12.0-15.5); LYMPH # 2.1 x10^3/uL (1.0-4.8); LYMPH % 28 % (24-48); MEAN CORPUSCULAR HEMOGLOBIN 28 pg (25-35); MEAN CORPUSCULAR HGB CONC 34 g/dL (31-37); MEAN CORPUSCULAR VOLUME 84 fL (79-100); MONO # 0.5 x10^3/uL (0.0-1.1); MONO % 7 % (0-9); NEUT # 4.7 x10^3/uL (1.8-7.7); NEUT % 61 % (31-73); PLATELET COUNT 220 x10^3/uL (140-400); RED BLOOD COUNT 4.46 x10^6/uL (3.50-5.40); RED CELL DISTRIBUTION WIDTH 15.6 % (11.5-14.5); WHITE BLOOD COUNT 7.7 x10^3/uL (4.0-11.0)
[2019-02-17 14:41] LABS: ALBUMIN 3.8 g/dL (3.4-5.0); CALCIUM 9.6 mg/dL (8.5-10.1); CREATININE 1.7 mg/dL (0.6-1.0); GFR 29.8; PHOSPHORUS 3.8 mg/dL (2.6-4.7); POTASSIUM 4.2 mmol/L (3.5-5.1)
[2019-02-17 22:08] LABS: CALCIUM PTH 10.1 mg/dL (8.7-10.3); CREATININE PTH 1.58 mg/dL (0.57-1.00); PHOSPHORUS PTH 3.7 mg/dL (2.5-4.5); PTH INTACT 73 pg/mL (15-65)
== END ==
LOC: LAB 14:00
PROVIDERS: ATTEND Internal Medicine Nephrology
DX: E11.21 Type 2 diabetes mellitus with diabetic nephropathy (principal); E11.22 Type 2 diabetes mellitus with diabetic chronic kidney disease; I12.9 Hypertensive chronic kidney disease with stage 1 through stage 4 chronic kidney disease, or unspecified chronic kidney disease; N18.4 Chronic kidney disease, stage 4 (severe); I25.5 Ischemic cardiomyopathy; E66.9 Obesity, unspecified; E03.9 Hypothyroidism, unspecified; M19.90 Unspecified osteoarthritis, unspecified site; Z68.41 Body mass index [BMI] 40.0-44.9, adult
CPT/HCPCS: 36415; 80069; 83970; 85025

== ENCOUNTER → 2019-08-14 | Outpatient (CLI) | payer MEDICARE ==
[~2019-08-14] MED LIST changes: -GLIM1TAB3 PO; +GLIM1TAB7 PO
[2019-08-14 10:20] LABS: BASO # 0.1 x10^3/uL (0.0-0.2); BASO % 2 % (0-3); EOS # 0.2 x10^3/uL (0.0-0.7); EOS % 3 % (0-3); HEMATOCRIT 37.2 % (36.0-47.0); HEMOGLOBIN 12.4 g/dL (12.0-15.5); LYMPH # 1.7 x10^3/uL (1.0-4.8); LYMPH % 22 % (24-48); MEAN CORPUSCULAR HEMOGLOBIN 28 pg (25-35); MEAN CORPUSCULAR HGB CONC 33 g/dL (31-37); MEAN CORPUSCULAR VOLUME 84 fL (79-100); MONO # 0.5 x10^3/uL (0.0-1.1); MONO % 6 % (0-9); NEUT # 5.2 x10^3/uL (1.8-7.7); NEUT % 67 % (31-73); PLATELET COUNT 220 x10^3/uL (140-400); RED BLOOD COUNT 4.45 x10^6/uL (3.50-5.40); RED CELL DISTRIBUTION WIDTH 14.9 % (11.5-14.5); WHITE BLOOD COUNT 7.8 x10^3/uL (4.0-11.0)
[2019-08-14 10:36] LABS: ALBUMIN 3.6 g/dL (3.4-5.0); CALCIUM 8.9 mg/dL (8.5-10.1); CREATININE 2.2 mg/dL (0.6-1.0); GFR 22.1; PHOSPHORUS 3.7 mg/dL (2.6-4.7); POTASSIUM 4.5 mmol/L (3.5-5.1)
[2019-08-15 00:07] LABS: CALCIUM PTH 9.7 mg/dL (8.7-10.3); CREATININE PTH 2.04 mg/dL (0.57-1.00); PHOSPHORUS PTH 3.5 mg/dL (3.0-4.3); PTH INTACT 90 pg/mL (15-65)
== END | disposition home or self-care (01) ==
LOC: LAB 10:07
PROVIDERS: ATTEND Internal Medicine Nephrology
DX: I12.9 Hypertensive chronic kidney disease with stage 1 through stage 4 chronic kidney disease, or unspecified chronic kidney disease (principal); N18.4 Chronic kidney disease, stage 4 (severe); E11.21 Type 2 diabetes mellitus with diabetic nephropathy; E11.22 Type 2 diabetes mellitus with diabetic chronic kidney disease; I25.5 Ischemic cardiomyopathy; Z68.41 Body mass index [BMI] 40.0-44.9, adult
CPT/HCPCS: 36415; 80069; 83970; 85025

== ENCOUNTER → 2019-08-14 | Outpatient (CLI) | payer MEDICARE | END | disposition home or self-care (01) | LOC: LAB 10:00 | PROVIDERS: ATTEND Family Medicine | DX: E11.22 Type 2 diabetes mellitus with diabetic chronic kidney disease (principal); I12.9 Hypertensive chronic kidney disease with stage 1 through stage 4 chronic kidney disease, or unspecified chronic kidney disease; N18.4 Chronic kidney disease, stage 4 (severe); I25.5 Ischemic cardiomyopathy; E03.9 Hypothyroidism, unspecified; Z68.41 Body mass index [BMI] 40.0-44.9, adult | CPT/HCPCS: 36415; 84443 ==

== ENCOUNTER → 2020-01-11 | Outpatient (CLI) | payer MEDICARE ==
[~2020-01-11] MED LIST changes: +INSU100I13 SQ; +methylPREDNISolone ACETATE 40 MG/ML VIAL. ONE; +methylPREDNISolone ACETATE 80 MG/ML VIAL. ONE
--- NOTE | 2020-01-11 10:40 | PDOC ---
Progress Note - Pain Clinic Date of Service: DOS: DATE: 01/11/20 TIME: 10:37 Diagnosis: Dx: Lumbar radiculopathy with lumbar degenerative disease and lumbar postlaminectomy syndrome History or Present Illness: HPI: 69-year-old female returns follow-up status post lumbar epidural steroid injection last seen November 2018 patient did very well after the injection near 100% improvement for almost a year patient ports pain returned over the past 3 to 4 weeks in the low back and the bilateral lower extremities somewhat greater on the right than the left in the posterior gluteus posterior thighs bilaterally patient which is shooting pain with movement worse with walking standing changing positions bending stooping repetitive motions all describes the pain is aching and sharp shooting radiating on and off in intensity better with sitting or laying down but awakens her from sleep occasionally every 6-7 ho urs only over the past 3 to 4 weeks patient reports her pain is a 9 on scale 10 is worse over the past week 6 on average 5 its least is a 6 today. Patient ports no bowel or bladder incontinence no new motor or motor or sensory deficits. Physical Exam: VS: Blood pressure is 147/85 pulse 72 respirations 16 temperature 90.2 F height is 5 feet 5 inches weight is 246 pounds. PE: PHYSICAL EXAMINATION: GENERAL: The patient is awake, alert, oriented, appropriate, very pleasant demeanor HEENT: Shows normocephalic, atraumatic. Extraocular movements are intact and symmetrical. Oral cavity: Mucous membranes moist and pink. NECK: Shows anterior throat supple without palpable lymphadenopathy noted. Swallow reflex symmetrical. CHEST: Shows normal on inspection. Breath sounds are clear bilaterally no rales rhonchi or wheezes auscultated. HEART: Shows S1, S2 clear. No murmurs auscultated. ABDOMEN: Soft, nontender, nondistended, obese. No palpable organomegaly is noted. No rebound or guarding demonstrated. BACK: Shows spine grossly in the midline. Normal-appearing cervical lordotic curvature. There is slightly increased thoracic kyphosis, some minor flattening of the lumbar lordotic curvature. Lumbar paraspinous muscles show symmetrical on inspection, with well-healed midline surgical scar, on palpation shows some moderate tenderness diffusely throughout the upper, middle and lower distribution of the paraspinous muscles bilaterally but without specific trigger points, without radiation of pain. The patient has good rotational motion of the lumbar spine, both laterally as well as extension and flexion without significant difficulty. No tenderness over the spinous processes, sacrum or sacroiliac regions. EXTREMITIES: Lower extremities show deep tendon reflexes 2+ in the patellar and tendo calcaneus tendons. Motor exam is 5 on a scale of 5 with right dorsiflexion, extension, quadriceps and hamstring flexion and 5/5 on the left. Peripheral pulses are 1+ posterior tibial. No peripheral edema is noted bilaterally. Lower extremities are warm and dry to touch, equal in color and appearance. SKIN: Shows warm and dry, good turgor. No edema. No sores, rashes or bruising throughout. Procedure: Procedure: Options were discussed with the patient. Patient chart was reviewed his current medication regimen updated current review of systems updated today as well. We will proceed with a lumbar epidural steroid injection today as the first in the series. Risks were discussed including but not limited to: Bleeding, infection, possibility of epidural hematoma and subsequent neurological compromise, dural puncture, headaches, spinal cord and/or nerve damage, side effects of steroid medication, and poor results regarding pain control. Patient understands wished to proceed. Patient will return to the clinic in approximate 2 weeks for follow-up was counseled as to return appointment activity level and side effects to be aware of. Medication Injected: Med Injected: Procedure is lumbar epidural steroid injection under local anesthetic using sterile prep and drape at the L5-S1 level using C-arm fluoroscopic guidance in both AP and lateral views medications injected is 120 mg Depo-Medrol + 10 mL preservative-free normal saline and 2 mL contrast- condition at discharge is stable patient tolerated procedure well had no complications. Condition at Discharge: Condition at Discharge: Condition at discharge is stable patient tolerated procedure well had no complications. LUIS PRINCE MD Jan 11, 2020 10:40
== END ==
LOC: PNCL 09:24
PROVIDERS: ATTEND Anesthesiology
DX: M51.16 Intervertebral disc disorders with radiculopathy, lumbar region (principal); M46.1 Sacroiliitis, not elsewhere classified; I12.9 Hypertensive chronic kidney disease with stage 1 through stage 4 chronic kidney disease, or unspecified chronic kidney disease; N18.9 Chronic kidney disease, unspecified; E11.22 Type 2 diabetes mellitus with diabetic chronic kidney disease; E03.9 Hypothyroidism, unspecified; Z88.0 Allergy status to penicillin; Z88.8 Allergy status to other drugs, medicaments and biological substances; Z79.84 Long term (current) use of oral hypoglycemic drugs; Z79.899 Other long term (current) drug therapy
CPT/HCPCS: 62323; J1030; J1040

== ENCOUNTER → 2020-01-29 | Outpatient (CLI) | payer MEDICARE ==
[~2020-01-29] MED LIST changes: +IOHEXOL 180 MG/ML 10 ML VIAL. ONE
--- NOTE | 2020-01-29 10:31 | PDOC ---
Progress Note - Pain Clinic Date of Service: DOS: DATE: 01/29/20 TIME: 10:28 Diagnosis: Dx: Lumbar radiculopathy with lumbar degenerative disc disease lumbar postlaminectomy syndrome History or Present Illness: HPI: 69-year-old female returns for follow-up status post lumbar epidural straight injection x1. Patient reports about 50% improvement right leg is completely pain-free now still pain the low back and the left side rating the posterior gluteus posterior thigh posterior calf patient reports is worse with walking st anding changing positions although since her last injection is doing much better with doing walking distances at home household activities activity at home and work and traveling with greater ease and comfort. Patient reports still wakes her from sleep about once a night but only about every 6-7 hours. Patient reports pain is radiating constant aching sharp at times in the low back shooting in the lower extremity in the posterior gluteus on the left side only and into the left leg only. Patient reports her pain is 8 on scale 10 is worse of the past week 7 on average 5 its least is a 5 today. Reports no new motor or sensory deficits no new bowel bladder incontinence or other complaints. Physical Exam: VS: Blood pressure is 143/83 pulse 70 respirations 16 temperature is 97.9 F height is 5 feet 5 inches weight is 243 pounds PE: PHYSICAL EXAMINATION: GENERAL: The patient is awake, alert, oriented, appropriate, very pleasant demeanor HEENT: Shows normocephalic, atraumatic. Extraocular movements are intact and symmetrical. Oral cavity: Mucous membranes moist and pink. NECK: Shows anterior throat supple without palpable lymphadenopathy noted. Swallow reflex symmetrical. CHEST: Shows normal on inspection. Breath sounds are clear bilaterally no rales rhonchi or wheezes. HEART: Shows S1, S2 clear. No murmurs auscultated. ABDOMEN: Soft, nontender, nondistended, obese. No palpable organomegaly is noted. No rebound or guarding demonstrated. BACK: Shows spine grossly in the midline. Normal-appearing cervical lordotic curvature. There is slightly increased thoracic kyphosis, some minor flattening of the lumbar lordotic curvature. Lumbar paraspinous muscles show symmetrical on inspection, on palpation shows some moderate tenderness diffusely throughout the upper, middle and lower distribution of the paraspinous muscles, but without specific trigger points, without radiation of pain. The patient has good rotational motion of the lumbar spine, both laterally as well as extension and flexion without significant difficulty. No tenderness over the spinous processes, sacrum or sacroiliac regions. EXTREMITIES: Lower extremities show deep tendon reflexes 2+ in the patellar and tendo calcaneus tendons. Motor exam is 5 on a scale of 5 with right dorsiflexion, extension, quadriceps and hamstring flexion and 5/5 on the left. Peripheral pulses are 1+ posterior tibial. No peripheral edema is noted bilaterally. Lower extremities are warm and dry to touch, equal in color and appearance. SKIN: Shows warm and dry, good turgor. No edema. No sores, rashes or bruising throughout. Procedure: Procedure: Options were discussed with the patient. Patient chart was reviewed as her current medication regimen updated current review of systems updated today as well. We will proceed with a second in the series lumbar epidural steroid injection today with fluoroscopic guidance. Risks were discussed including but not limited to: Bleeding, infection, possibility of epidural hematoma and subsequent neurological compromise, dural puncture, headaches, spinal cord and/or nerve damage, side effects of steroid medication, and poor results regarding pain control. Patient understands wished to proceed. Patient will return to the clinic in possibly 2 weeks for follow-up was counseled as to return appointment activity level and side effects to be aware of. Medication Injected: Med Injected: Procedure is lumbar epidural steroid injection under local anesthetic using sterile prep and drape at the L5-S1 level using C-arm fluoroscopic guidance in both AP and lateral views medications injected is 120 mg Depo-Medrol + 10 mL preservative-free normal saline and 2 mL contrast- condition at discharge is stable patient tolerated procedure well had no complications. Condition at Discharge: Condition at Discharge: Patient discharge is stable, patient tolerated the procedure well and had no complications. LUIS PRINCE MD Jan 29, 2020 10:31
== END | disposition home or self-care (01) ==
LOC: PNCL 09:53
PROVIDERS: ATTEND Anesthesiology
DX: M51.16 Intervertebral disc disorders with radiculopathy, lumbar region (principal); M96.1 Postlaminectomy syndrome, not elsewhere classified; I12.9 Hypertensive chronic kidney disease with stage 1 through stage 4 chronic kidney disease, or unspecified chronic kidney disease; N18.30 Chronic kidney disease, stage 3 unspecified; E11.42 Type 2 diabetes mellitus with diabetic polyneuropathy; K21.9 Gastro-esophageal reflux disease without esophagitis; E11.22 Type 2 diabetes mellitus with diabetic chronic kidney disease; M19.90 Unspecified osteoarthritis, unspecified site; E03.9 Hypothyroidism, unspecified; Z98.51 Tubal ligation status; Z98.890 Other specified postprocedural states; Z79.899 Other long term (current) drug therapy; Z79.4 Long term (current) use of insulin; Z79.82 Long term (current) use of aspirin; Z88.0 Allergy status to penicillin; Z88.5 Allergy status to narcotic agent; Z91.041 Radiographic dye allergy status; Z88.8 Allergy status to other drugs, medicaments and biological substances
CPT/HCPCS: 62323; J1030; J1040; Q9965

== ENCOUNTER → 2020-02-12 | Outpatient (CLI) | payer MEDICARE ==
[~2020-02-12] MED LIST changes: -IOHEXOL 180 MG/ML 10 ML VIAL. ONE; -methylPREDNISolone ACETATE 40 MG/ML VIAL. ONE; -methylPREDNISolone ACETATE 80 MG/ML VIAL. ONE
[2020-02-12 14:52] LABS: BASO # 0.1 x10^3/uL (0.0-0.2); BASO % 1 % (0-3); EOS # 0.2 x10^3/uL (0.0-0.7); EOS % 2 % (0-3); HEMATOCRIT 37.6 % (36.0-47.0); HEMOGLOBIN 12.1 g/dL (12.0-15.5); LYMPH # 1.9 x10^3/uL (1.0-4.8); LYMPH % 22 % (24-48); MEAN CORPUSCULAR HEMOGLOBIN 27 pg (25-35); MEAN CORPUSCULAR HGB CONC 32 g/dL (31-37); MEAN CORPUSCULAR VOLUME 84 fL (79-100); MONO # 0.5 x10^3/uL (0.0-1.1); MONO % 6 % (0-9); NEUT # 5.9 x10^3/uL (1.8-7.7); NEUT % 68 % (31-73); PLATELET COUNT 221 x10^3/uL (140-400); RED BLOOD COUNT 4.47 x10^6/uL (3.50-5.40); RED CELL DISTRIBUTION WIDTH 16.2 % (11.5-14.5); WHITE BLOOD COUNT 8.6 x10^3/uL (4.0-11.0)
[2020-02-12 15:11] LABS: ALBUMIN 3.4 g/dL (3.4-5.0); CREATININE 1.6 mg/dL (0.6-1.0); GFR 31.9; PHOSPHORUS 3.3 mg/dL (2.6-4.7); POTASSIUM 4.3 mmol/L (3.5-5.1)
[2020-02-13 00:10] LABS: CALCIUM PTH 9.4 mg/dL (8.7-10.3); CREATININE PTH 1.69 mg/dL (0.57-1.00); PHOSPHORUS PTH 3.4 mg/dL (3.0-4.3); PTH INTACT 129 pg/mL (15-65)
== END ==
LOC: LAB 13:35
PROVIDERS: ATTEND Internal Medicine Nephrology
DX: I10 Essential (primary) hypertension (principal)
CPT/HCPCS: 36415; 80069; 83970; 85025

== ENCOUNTER → 2020-08-16 | Outpatient (CLI) | payer MEDICARE ==
[~2020-08-16] MED LIST changes: +METH-562 PO; -METH750T2 PO
[2020-08-16 11:49] LABS: BASO % 1 % (0-3); EOS # 0.2 x10^3/uL (0.0-0.7); EOS % 3 % (0-3); HEMATOCRIT 35.5 % (36.0-47.0); HEMOGLOBIN 11.7 g/dL (12.0-15.5); LYMPH # 1.7 x10^3/uL (1.0-4.8); LYMPH % 24 % (24-48); MEAN CORPUSCULAR HEMOGLOBIN 28 pg (25-35); MEAN CORPUSCULAR HGB CONC 33 g/dL (31-37); MEAN CORPUSCULAR VOLUME 84 fL (79-100); MONO # 0.4 x10^3/uL (0.0-1.1); MONO % 6 % (0-9); NEUT # 4.7 x10^3/uL (1.8-7.7); NEUT % 67 % (31-73); PLATELET COUNT 208 x10^3/uL (140-400); RED BLOOD COUNT 4.25 x10^6/uL (3.50-5.40); RED CELL DISTRIBUTION WIDTH 15.7 % (11.5-14.5); WHITE BLOOD COUNT 7.1 x10^3/uL (4.0-11.0)
[2020-08-16 12:05] LABS: ALBUMIN 3.7 g/dL (3.4-5.0); CALCIUM 9.2 mg/dL (8.5-10.1); CREATININE 1.8 mg/dL (0.6-1.0); GFR 27.8; PHOSPHORUS 3.3 mg/dL (2.6-4.7); POTASSIUM 4.4 mmol/L (3.5-5.1)
[2020-08-17 08:18] LABS: CALCIUM PTH 9.3 mg/dL (8.7-10.3); CREATININE PTH 1.83 mg/dL (0.57-1.00); PHOSPHORUS PTH 3.1 mg/dL (3.0-4.3); PTH INTACT 79 pg/mL (15-65)
== END ==
LOC: LAB 11:27
PROVIDERS: ATTEND Internal Medicine Nephrology
DX: E11.21 Type 2 diabetes mellitus with diabetic nephropathy (principal); N18.32 Chronic kidney disease, stage 3b; I10 Essential (primary) hypertension; I25.5 Ischemic cardiomyopathy; Z68.41 Body mass index [BMI] 40.0-44.9, adult
CPT/HCPCS: 36415; 80069; 83970; 85025

== ENCOUNTER → 2021-02-24 | Outpatient (CLI) | payer MEDICARE ==
[2021-02-24 09:45] LABS: CALCIUM 8.8 mg/dL (8.5-10.1); CREATININE 1.9 mg/dL (0.6-1.0); GFR 26.1; POTASSIUM 4.6 mmol/L (3.5-5.1)
[2021-02-24 09:46] LABS: CHOLESTEROL/HDL RATIO 2.6
== END ==
LOC: LAB 08:54
PROVIDERS: ATTEND Internal Medicine Cardiovascular Disease
DX: I10 Essential (primary) hypertension (principal); I42.8 Other cardiomyopathies
CPT/HCPCS: 36415; 80048; 80061

== ENCOUNTER → 2021-03-28 | Outpatient (CLI) | payer MEDICARE ==
[2021-03-28 13:59] LABS: BASO # 0.1 x10^3/uL (0.0-0.2); BASO % 1 % (0-3); EOS # 0.2 x10^3/uL (0.0-0.7); EOS % 2 % (0-3); HEMATOCRIT 35.3 % (36.0-47.0); HEMOGLOBIN 11.6 g/dL (12.0-15.5); LYMPH # 2.2 x10^3/uL (1.0-4.8); LYMPH % 24 % (24-48); MEAN CORPUSCULAR HEMOGLOBIN 27 pg (25-35); MEAN CORPUSCULAR HGB CONC 33 g/dL (31-37); MEAN CORPUSCULAR VOLUME 81 fL (79-100); MONO # 0.5 x10^3/uL (0.0-1.1); MONO % 5 % (0-9); NEUT # 6.2 x10^3/uL (1.8-7.7); NEUT % 67 % (31-73); PLATELET COUNT 237 x10^3/uL (140-400); RED BLOOD COUNT 4.34 x10^6/uL (3.50-5.40); RED CELL DISTRIBUTION WIDTH 15.7 % (11.5-14.5); WHITE BLOOD COUNT 9.2 x10^3/uL (4.0-11.0)
[2021-03-28 14:29] LABS: ALBUMIN 3.7 g/dL (3.4-5.0); CALCIUM 9.2 mg/dL (8.5-10.1); CREATININE 2.1 mg/dL (0.6-1.0); GFR 23.2; POTASSIUM 4.3 mmol/L (3.5-5.1)
[2021-03-29 10:12] LABS: CALCIUM PTH 10.2 mg/dL (8.7-10.3); CREATININE PTH 2.09 mg/dL (0.57-1.00); PTH INTACT 88 pg/mL (15-65)
== END ==
LOC: LAB 13:13
PROVIDERS: ATTEND Internal Medicine Nephrology
DX: E11.22 Type 2 diabetes mellitus with diabetic chronic kidney disease (principal); I12.9 Hypertensive chronic kidney disease with stage 1 through stage 4 chronic kidney disease, or unspecified chronic kidney disease; E11.21 Type 2 diabetes mellitus with diabetic nephropathy; N18.4 Chronic kidney disease, stage 4 (severe); I42.9 Cardiomyopathy, unspecified; Z68.41 Body mass index [BMI] 40.0-44.9, adult
CPT/HCPCS: 36415; 80069; 83970; 85025

== ENCOUNTER → 2021-05-12 | Outpatient (CLI) | payer MEDICARE ==
[2021-05-12 11:17] LABS: ALBUMIN 3.8 g/dL (3.4-5.0); CALCIUM 9.3 mg/dL (8.5-10.1); CREATININE 2.3 mg/dL (0.6-1.0); GFR 20.9; PHOSPHORUS 4.3 mg/dL (2.6-4.7); POTASSIUM 4.3 mmol/L (3.5-5.1)
== END ==
LOC: LAB 10:41
PROVIDERS: ATTEND Internal Medicine Nephrology
DX: I12.9 Hypertensive chronic kidney disease with stage 1 through stage 4 chronic kidney disease, or unspecified chronic kidney disease (principal); E11.21 Type 2 diabetes mellitus with diabetic nephropathy; E11.22 Type 2 diabetes mellitus with diabetic chronic kidney disease; N18.4 Chronic kidney disease, stage 4 (severe); I25.5 Ischemic cardiomyopathy
CPT/HCPCS: 36415; 80069

== ENCOUNTER → 2021-05-26 | Outpatient (CLI) | payer MEDICARE ==
[2021-05-26 13:04] LABS: BASO % 0 % (0-3); EOS # 0.2 x10^3/uL (0.0-0.7); EOS % 3 % (0-3); HEMATOCRIT 34.8 % (36.0-47.0); HEMOGLOBIN 11.1 g/dL (12.0-15.5); LYMPH # 1.7 x10^3/uL (1.0-4.8); LYMPH % 29 % (24-48); MEAN CORPUSCULAR HEMOGLOBIN 26 pg (25-35); MEAN CORPUSCULAR HGB CONC 32 g/dL (31-37); MEAN CORPUSCULAR VOLUME 82 fL (79-100); MONO # 0.5 x10^3/uL (0.0-1.1); MONO % 8 % (0-9); NEUT # 3.4 x10^3/uL (1.8-7.7); NEUT % 59 % (31-73); PLATELET COUNT 214 x10^3/uL (140-400); RED BLOOD COUNT 4.24 x10^6/uL (3.50-5.40); RED CELL DISTRIBUTION WIDTH 15.9 % (11.5-14.5); WHITE BLOOD COUNT 5.8 x10^3/uL (4.0-11.0)
[2021-05-26 13:28] LABS: ALBUMIN 3.8 g/dL (3.4-5.0); CALCIUM 9.3 mg/dL (8.5-10.1); CREATININE 2.2 mg/dL (0.6-1.0); PHOSPHORUS 3.6 mg/dL (2.6-4.7); POTASSIUM 4.3 mmol/L (3.5-5.1)
[2021-05-27 07:19] LABS: CALCIUM PTH 9.9 mg/dL (8.7-10.3); CREATININE PTH 2.11 mg/dL (0.57-1.00); PHOSPHORUS PTH 3.4 mg/dL (3.0-4.3); PTH INTACT 99 pg/mL (15-65)
== END ==
LOC: LAB 12:21
PROVIDERS: ATTEND Internal Medicine Nephrology
DX: I12.9 Hypertensive chronic kidney disease with stage 1 through stage 4 chronic kidney disease, or unspecified chronic kidney disease (principal); E11.21 Type 2 diabetes mellitus with diabetic nephropathy; N18.4 Chronic kidney disease, stage 4 (severe); I25.5 Ischemic cardiomyopathy; Z68.41 Body mass index [BMI] 40.0-44.9, adult
CPT/HCPCS: 36415; 80069; 83970; 85025

== ENCOUNTER → 2021-06-23 | Outpatient (CLI) | payer MEDICARE ==
[2021-06-23 11:28] LABS: ALBUMIN 3.8 g/dL (3.4-5.0); CALCIUM 9.5 mg/dL (8.5-10.1); CREATININE 2.2 mg/dL (0.6-1.0); PHOSPHORUS 3.9 mg/dL (2.6-4.7); POTASSIUM 4.6 mmol/L (3.5-5.1)
== END ==
LOC: LAB 10:41
PROVIDERS: ATTEND Internal Medicine Nephrology
DX: I12.9 Hypertensive chronic kidney disease with stage 1 through stage 4 chronic kidney disease, or unspecified chronic kidney disease (principal); E11.21 Type 2 diabetes mellitus with diabetic nephropathy; E11.22 Type 2 diabetes mellitus with diabetic chronic kidney disease; N18.4 Chronic kidney disease, stage 4 (severe); I42.9 Cardiomyopathy, unspecified; E66.9 Obesity, unspecified
CPT/HCPCS: 36415; 80069

== ENCOUNTER → 2021-08-08 | Outpatient (CLI) | payer MEDICARE ==
--- NOTE | 2021-08-08 12:08 | KCIC ---
CT scan abdomen and pelvis with oral contrast only 08/08/2021 CLINICAL HISTORY: Left lower quadrant abdominal pain. TECHNIQUE: After the oral administration contrast only, contiguous, 0.625 mm axial sections were obta ined through the abdomen and pelvis. 5 mm reconstructed sagittal, axial and coronal images were obtai delmar. One or more of the following individualized dose reduction techniques were utilized for this study: 1. Automated exposure control. 2. Adjustment of the mA and/or kV according to patient size. 3. Use of iterative reconstruction technique. FINDINGS: Comparison study is dated 05/16/2014. Images through the lung bases demonstrate borderline cardiomegaly. Subsegmental atelectasis is seen i nvolving the right lower lobe along with the lingula. The unenhanced CT appearance of the liver, spleen, pancreas, and adrenal glands are within normal radford its. Rounded low-attenuation lesions are seen involving the kidneys which measure 1 to 3.3 cm in size . They likely represent cysts. No further imaging evaluation is recommended. Atherosclerotic calcification of the abdominal aorta and its branches is noted. The abdominal aorta t apers normally. The gallbladder is contracted. No free fluid or free air is seen within the abdomen. Air and stool are seen throughout the colon. There is no evidence of bowel obstruction. Multiple diverticula are seen involving the descending and sigmoid colon. Increased density is seen w ithin the fat surrounding the proximal left sigmoid colon. These findings are consistent with diverti culitis. No abnormal fluid collection is seen to suggest evidence of an abscess. Images through the pelvis demonstrate the urinary bladder contracted. No adnexal mass is seen. Puncta te calcification is seen within the left pelvis consistent with phleboliths. No free fluid is seen. Very mild S-shaped curvature of the thoracolumbar spine is seen. Degenerative changes are seen involv ing the lower thoracic and throughout the lumbar spine along with both hips. IMPRESSION: Findings are seen consistent with sigmoid diverticulitis. No abscess is seen. Electronically signed by: Uriah Bear MD (08/08/2021 12:05 PM) [id number]
== END ==
LOC: KCIC CT 08:13
PROVIDERS: ATTEND Family Medicine
DX: K57.30 Diverticulosis of large intestine without perforation or abscess without bleeding (principal); J98.11 Atelectasis; N28.89 Other specified disorders of kidney and ureter; I70.0 Atherosclerosis of aorta; M47.815 Spondylosis without myelopathy or radiculopathy, thoracolumbar region; M16.0 Bilateral primary osteoarthritis of hip; M41.85 Other forms of scoliosis, thoracolumbar region; K57.32 Diverticulitis of large intestine without perforation or abscess without bleeding
CPT/HCPCS: 74176